=== PATIENT | male | born 2000 ===

== ENCOUNTER 2025-03-25 08:49 | Outpatient (AMB) | payer OTHER, SELFPAY ==
--- NOTE | 2025-03-25 09:03 | MHC.PC.OV ---
Vital Signs 03/25/25 09:26 Height 5 ft 7 in Weight 125 lb 8 oz BMI 19.7 BP 96/60 Blood Pressure Location Lt brachial Position Sitting Respiration 16 Pulse 89 Pulse Source Pulse Oximeter Temp 98.3 F Temp Source Oral Pulse Oximetry (%) 96 Oxygen Delivery Method Room Air Intake Visit Reasons: [employer]-PE Intake Note: patient here for new patient visit Drying Room Operator Required: No Allergies No Known Allergies Allergy (Verified 03/25/25 09:25) Medication List - Last Reconciled 03/25/25 by Alyssa Zurita CNP albuterol sulfate 90 mcg/actuation (Ventolin HFA) 2 puffs inhalation Q4-6H PRN budesonide-formoterol 80-4.5 mcg/actuation 2 puffs inhalation BID cyclobenzaprine 5 mg PO BID ipratropium-albuterol 0.5 mg-3 mg(2.5 mg base)/3 mL 3 mL inhalation Q4-6H PRN naproxen 500 mg PO BID PRN Tobacco use date assessed: 03/25/25 Dental Screening Dental Screen Date: 03/25/25 Did you have a dental visit in the last 12 months?: No Did you have a dental problem in the last 6 months where you did not have access to dental care?: No Was dental information given to patient?: Yes HPI HPI Comments History of Present Illness Details 24-year-old male presents to establish care. Prior PCP? - [facility] Last office visit/CPE/labs - 4 years ago Acute issue(s) - Reports chronic persistent right hip pain and tightness which he attributes to sciatic nerve pain. He describes the pain as throbbing, pinching, pressure with prolonged sitting or standing. He also reports intermittent tingling and numbness to the right hip. The tightness is persistent. He has had xray which was negative. No fall, injury, or trauma. He takes Ibuprofen as needed and smoke cannabis to manage his pain. He had physical therapy few years ago without improvement or resolution of his symptoms. - Reports history of anxiety and depression. He notes that he was on psychotropic medication for 3 years but took himself off medications 6 years ago. He stop taking the medications because I did not feel like myself. He notes that he has not felt depressed in a while and his anxiety have been well controlled. Past Medical History - Asthma, sinusitis, sciatic nerve pain right hip, anxiety, depression Surgical History - None Family History - Mom: JHONNIE Social History - Nonsmoker. History of vaping. Drinks 2 shots once or twice monthly. Smokes an 8th of cannabis daily - Has been making unhealthy dietary choices. He does not exercise due to right hip pain. Reports poor sleep due to right hip pain - He notes that he sexually active, in a monogamous relationship, and has no concern for STD Health maintenance - Last eye exam was about 6 years ago. Referred to Ophthalmology for routine eye exam - Last dental visit was several years ago; encouraged to schedule an appointment with his dentist for routine dental care - Last tetanus vaccine unknown. Will review his pediatrics record once received - Has not been vaccinated for the flu this season; declines vaccination Specialists None [facility] Medical History (Updated 03/25/25 @ 12:28 by Alyssa Zurita CNP) Depression Anxiety Sciatic nerve pain Sinusitis Asthma Family History (Updated 03/25/25 @ 09:24 by Charline Schofield MA) Mother Substance abuse Social History Housing: House Patient Tobacco Use Status: Never used Tobacco e-Cigarette/Vaping Use: Former Use Second Hand Smoke Exposure: Yes Substance Use Type: Marijuana service: No Current occupational status: unemployed Current occupational exposures/hazards: No Cognitive needs: No Hearing needs: No Vision needs: No Questionnaire PHQ-9 Over the last 2 weeks, how often have you been bothered by any of the following problems? 1. Little interest or pleasure in doing things: several days 2. Feeling down, depressed, or hopeless: several days 3. Trouble falling or staying asleep, or sleeping too much: nearly every day 4. Feeling tired or having little energy: several days 5. Poor appetite or overeating: several days 6. Feeling bad about yourself - or that you are a failure or have let yourself or your family down: several days 7. Trouble concentrating on things, such as reading the newspaper or watching television: not at all 8. Moving or speaking so slowly that other people could have noticed. Or the opposite - being so fidgety or restless that you have been moving around a lot more than usual: not at all 9. Thoughts that you would be better off or of hurting yourself in some way: not at all Total score: 8 Depression Screening Interpretation: Positive Depression Screening Follow-up: Existing condition and Declines treatment Depression Screening Done: Yes 68927 - PHQ-9 Billing: Yes Source: Developed by Drs. Osman Milan, Rose Henson, Triston Mayorga and colleagues, with an educational george from [employer]. Thrive Questionnaire Date Thrive assessed: 03/25/25 I am a: Patient What is your living situation today?: I have a place to live, but I am worried about losing it in the future Within the past 12 months, did the food you bought not last and you didn't have the money to get more?: Sometimes True Within the past 12 months, did you worry whether your food would run out before you got money to buy more?: Never true Do you have trouble paying for medicines?: Yes Do you have trouble getting transportation to medical appointments?: Yes Do you have trouble paying your heating and electricity bill?: Yes Do you have trouble taking care of your child, family member or friend?: No Do you have trouble with day-to-day activities such as bathing, preparing meals, shopping, managing finances, etc.?: No Are you currently unemployed and looking for a job?: Yes Are you interested in more education?: Yes Please select the resources that you would like help with: Housing/Half-Way, Paying for medicine, Transportation, Utilities, Daily support and Job search/training Currently or been in a relationship where the following occur: I choose not to answer THRIVE Score: 4 AUDIT C Alcohol Use Questionnaire (AUDIT-C) 1. How often do you have a drink containing alcohol?: Monthly or less 2. How many drinks containing alcohol do you have on a typical day when you are drinking?: 1 or 2 3. How often do you have six or more drinks on one occasion?: Less than monthly Total Score: 2 Score Reviewed/Action Taken: Yes JOSUE-7 AMB Questionnaire JOSUE-7 Date JOSUE - 7 assessed: 03/25/25 Feeling nervous, anxious, or on edge: 1 = Several days Not being able to stop or control worryin = Several days Worrying too much about different things: 1 = Several days Trouble relaxin = Several days Being so restless that it is hard to sit still: 0 = Not at all Becoming easily annoyed or irritable: 1 = Several days Feeling afraid as if something awful might happen: 1 = Several days Total JOSUE-7 score (0-4 normal; 5-9 mild; 10-14 moderate; 15-21 severe): 6 Source: Developed by Drs. Osman Milan, Rose Henson, Triston Mayorga and colleagues, with an educational george from [employer]. JOSUE-7 Assessment Billing JOSUE-7 Assessment Tool: JOSUE-7 Assessment 06599 ACT Questionnaire In the past 4 weeks, how much of the time did your asthma keep you from getting as much done at work, school or at home?: All of the time During the past 4 weeks, how often have you had shortness of breath?: More than once a day During the past 4 weeks, how often did your asthma symptoms wake you up at night or earlier than usual in the morning?: Once or twice per week During the past 4 weeks, how often have you had to use your rescue inhaler or nebulizer medication?: More than 3 times per day How would you rate your asthma control during the past 4 weeks?: Poorly controlled ACT Interpretation: Positive Score: 9 Review of Systems Const Details: Denies chills, Denies fatigue, Denies fever(s), Denies headache(s) and Denies weakness HEENT Denies change in vision, Denies dizziness, Denies headache(s), Denies hearing loss, Denies nasal congestion, Denies sinus pain, Denies sinus pressure and Denies sore throat Card Denies chest pain, Denies lightheadedness, Denies dyspnea and Denies other (palpitations) Resp Denies cough, Denies dyspnea and Denies wheezing GI Denies abdominal pain, Denies melena, Denies hematochezia, Denies change in bowel habits, Denies dyspepsia and Denies nausea Denies hematuria and Denies dysuria Musc Reports as per HPI Skin/Breast Denies rash, Denies unusual bruising and Denies wounds Neuro Denies abnormal gait, Denies dizziness, Denies headache(s), Denies memory loss, Denies numbness, Denies Sensory deficit (Neuro), Denies tingling and Denies weakness Psych Reports anxiety, Denies depression and Denies memory loss Endo Denies cold intolerance, Denies fatigue, Denies heat intolerance, Denies polydipsia and Denies polyuria Malik/Lymph Denies easy bleeding and Denies easy bruising Aller/Immun Denies wheezing Physical exam (Primary Care) Vital Signs: Last Vital Signs Temp 98.3 F 03/25/25 09:26 Pulse 89 03/25/25 09:26 Resp 16 03/25/25 09:26 BP 96/60 03/25/25 09:26 Pulse Ox 96 03/25/25 09:26 Oxygen Delivery Method Room Air 03/25/25 09:26 BMI result Body Mass Index 19.7 Tobacco/Smoking Status: Tobacco use Status Tobacco use date assessed 03/25/25 03/25/25 09:04 Patient Tobacco Use Status Never used Tobacco 03/25/25 09:28 e-Cigarette/Vaping Use Former Use 03/25/25 09:28 PHQ-9: PHQ-9 Score PHQ-9: Total score 8 03/25/25 09:57 Depression Screening Interpretation: Positive Depression Screening Follow-up: Existing condition and Declines treatment Thrive Assessment: Date of Thrive Assessment Date Thrive assessed 03/25/25 03/25/25 09:04 Currently or been in a relationship where the following occur: I choose not to answer Const Other: General: no acute distress, well developed, alert and awake Nutritional Appearance: well nourished Orientation/consciousness: patient oriented x3 HENMT Head: Yes normocephalic and Yes atraumatic Ears: hearing grossly normal bilaterally and TM's normal bilaterally General nose exam: Normal external nose present and Normal nares present Mouth: Normal oral and palatal mucosa present and moist mucous membranes Teeth and gingiva: dentition normal Throat: Yes oropharynx normal Eyes Pupils: Equal, round and reactive pupils present and Pupil accommodation reflex normal EOM: EOMs intact bilaterally Neck Neck: Yes normal visual inspection, Yes no lymphadenopathy and Yes trachea midline Thyroid: Thyroid normal Carotids: no bruits Lymphatic: no lymphadenopathy noted Chest Chest palpation & inspection: normal inspection of the chest Resp Effort & Inspection: normal respiratory effort Auscultation: clear to auscultation bilaterally Cardio Rate: regular rate Rhythm: regular rhythm Heart sounds: S1 normal heart sound present, S2 normal heart sound present, no gallops, no murmurs and no rubs Bruits: no abdominal aortic bruits and no carotid bruits GI Palpation (GI): No Abdominal aortic bruit present, Soft to palpation, nontender, No hepatosplenomegaly present and No Rebound tenderness present Auscultation: normal bowel sounds General: Yes no CVA tenderness Back/Spine/Pelvis Back: no CVA tenderness Cervical Spine: cervical ROM normal and No Cervical spine tenderness Thoracic/Lumbar Spine: thoraco-lumbar ROM normal, No pain with thoraco-lumbar ROM, No thoracic spinal tenderness and No lumbar spinal tenderness Skin General: warm and dry. Normal skin color. Normal skin turgor Lesions: no lesions Rashes: no rashes Trauma: no lacerations or abrasions Wounds: no wounds Nails: normal Neuro General: patient oriented x3, gait normal and CN's II-XI intact bilaterally Cranial nerves: Yes Equal, round and reactive pupils present Cognition (Neuro): normal cognition Gait exam (Neuro): Normal gait present Motor exam (neuro): 5/5 motor strength present throughout Sensory Exam: No Sensory deficit (Neuro) Deep tendon reflexes (DTR's): Right patellar reflex intensity grade: 2+ and Left patellar reflex intensity grade: 2+ Extrem General: Yes normal to inspection, No edema and No calf tenderness Psych Appearance: grossly normal Affect: normal affect Attitude: cooperative Thought process: Normal thought process present Coding Level of Care Code New Pt Level 4 (46446) New Pt Prev Care 18-39yr(08457 Diagnoses Normal physical examination, routine Z00.00 Asthma J45.909 Right hip pain M25.551 Anxiety F41.9 Depression F32.A Eye exam, routine Z01.00 Poor nutrition E63.9 Laboratory tests ordered as part of a complete physical exam (CPE) Z00.00 Additional Codes Asthma Control Questionnaire - ACT Interpretation: Positive ([id number]) JOSUE-7 Assessment Billing - JOSUE-7 Assessment Tool: JOSUE-7 Assessment 85509 ([id number]) PHQ-9 - 56858 - PHQ-9 Billing: Yes ([id number]) Assessment & Plan Assessment & Plan (1) Normal physical examination, routine: Code(s): Z00.00 - Encounter for general adult medical examination without abnormal findings Category: Medical Plan: No significant functional limitation noted. Continue current treatment regimen. Advised to performed lab work and follow-up for a telehealth visit in 2-3 weeks. Return sooner with symptoms or concerns. Verbalized understanding and agreed with the plan. (2) Asthma: Code(s): J45.909 - Unspecified asthma, uncomplicated Category: Medical Plan: ACT score is 9, poorly control asthma. Instructed on appropriate use of long and short-acting inhalers. Continue current treatment regimen. Referred to pulmonology. Follow-up with symptoms or concerns. Verbalized understanding and agreed with the plan. (3) Right hip pain: Code(s): M25.551 - Pain in right hip Category: Medical Plan: Reports chronic persistent right hip pain and tightness which he attributes to sciatic nerve pain. He describes the pain as throbbing, pinching, pressure with prolonged sitting or standing. He also reports intermittent tingling and numbness to the right hip. The tightness is persistent. He does not exercise or sleep well due to the pain. He has had xray which was negative. No fall, injury, or trauma. He takes Ibuprofen as needed and smoke cannabis to manage his pain. He had physical therapy few years ago without improvement or resolution of his symptoms. Naproxen 500 mg twice daily as needed and cyclobenzaprine 5 mg twice daily as needed ordered; advised to take as prescribed. Take naproxen with food. Instructed on the risks, benefits, and potential adverse reactions of the medication. Warm/cool compresses, stretching, and massage encouraged. Instructed on sleep hygiene. X-ray of the right hip and pelvis ordered; will review results and make changes as needed. Follow-up with worsening or new symptoms. May referred to orthopedics. Verbalized understanding and agreed with the plan. (4) Anxiety: Code(s): F41.9 - Anxiety disorder, unspecified Category: Medical Plan: Reports history of anxiety and depression. He notes that he was on psychotropic medication for 3 years but took himself off medications 6 years ago. He stop taking the medications because I did not feel like myself. He notes that he has not felt depressed in a while and his anxiety have been well controlled. PHQ-9 and JOSUE-7 scores revealed mild depression and anxiety. Declines medication treatment at this time. Routine exercise encouraged. Follow-up with worsening or new symptoms. Verbalized understanding and agreed with the plan. (5) Depression: Code(s): F32.A - Depression, unspecified Category: Medical Plan: Plan as above. (6) Eye exam, routine: Code(s): Z01.00 - Encounter for examination of eyes and vision without abnormal findings Category: Medical Plan: His last eye exam was about 6 years ago. Referred to Ophthalmology for routine eye exam. (7) Poor nutrition: Code(s): E63.9 - Nutritional deficiency, unspecified Category: Medical Plan: He has been making unhealthy dietary choices. He does not exercise due to right hip pain. Healthy diet instructed and encouraged. Advised to follow treatment plan for right hip pain. Verbalized understanding and agreed with the plan. (8) Laboratory tests ordered as part of a complete physical exam (CPE): Code(s): Z00.00 - Encounter for general adult medical examination without abnormal findings Category: Medical Plan: Fasting labs ordered as part of a complete physical exam. Advised to fast for at least 10 hours before getting labs drawn. May drink water Verbalized understanding and agreed with treatment plan. Orders: Orders Complete Blood Count Auto Diff Today Z00.00 - Encounter for general adult medical examination without abnormal findings Comprehensive [place]. Panel Fast Today Z00.00 - Encounter for general adult medical examination without abnormal findings TSH reflex Free T4 Today Z00.00 - Encounter for general adult medical examination without abnormal findings UA CC w/rflx Micro + Cult Today Z00.00 - Encounter for general adult medical examination without abnormal findings Vitamin D 25-OH Total Today Z00.00 - Encounter for general adult medical examination without abnormal findings XR hip RT w PEL1V Today M25.551 - Pain in right hip Lipid Panel Today Z00.00 - Encounter for general adult medical examination without abnormal findings Microalbumin, Random (w Creat) Today Z00.00 - Encounter for general adult medical examination without abnormal findings Referrals Ophthalmology Referral Z01.00 - Encounter for examination of eyes and vision without abnormal findings Pulmonology Referral J45.909 - Unspecified asthma, uncomplicated Medications: New ipratropium-albuterol 0.5 mg-3 mg(2.5 mg base)/3 mL 3 mL inhalation Q4-6H PRN 180 mL 4RF shortness of breath or wheezing cyclobenzaprine 5 mg PO BID 30 tabs 1RF naproxen 500 mg PO BID PRN 60 tabs 1RF pain
--- OUTSIDE RECORDS SUMMARY | 2025-03-25 09:09 | XMS_ITS | Clinical Summary ---
Author Organization [facility] Address [address] [place] [phone] Phone Care Team Providers Care Burr Bench Operator Name Role Phone Unavailable Primary Care Provider Unavailabl e Allergies Active Allergy Reactions Criticality Noted Date Comments Environmental Medications calcium carbonate EX (TUMS SMOOTHIES) 750 MG chewable tabletIndication s:Dyspepsia Chew 2 tablets (1,500 mg total) 2 (two) times a day as needed for indigestion or heartburn. 90 tablet 9 Active Additional Information Patient not taking.Reported on 10/22/2019 cloNIDine 0.1 MG tabletIndication s:Anxiety,Disrup mango sleep-wake cycle TAKE 1 TABLET(0.1 MG) BY MOUTH EVERY NIGHT. MAY TAKE UP TO 2 TABLET AT NIGHT NEEDED 45 tablet 0 Active Additional Information Patient not taking.Reported on 03/18/2021 Nebulizer miscIndications: Moderate persistent asthma without complication 1 Units every 4 (four) hours as needed (difficulty breathing). 1 each 1 0 Active Additional Information Patient not taking.Reported on 05/05/2021 FLUoxetine 10 MG capsuleIndicatio ns:Anxiety TAKE 1 CAPSULE(10 MG) BY MOUTH EVERY MORNING 30 capsule 0 Active Additional Information Patient not taking.Reported on 03/18/2021 Spacer/Aero-Hold ing Chambers (AeroChamber Plus Ozzy-Vu) miscIndications: Moderate persistent asthma without complication as directed with MDI 1 each 0 Active Additional Information Patient not taking.Reported on 05/05/2021 fluticasone 50 MCG/ACT nasal sprayIndications :Allergic rhinitis, unspecified seasonality, unspecified trigger SHAKE LIQUID AND USE 2 SPRAYS IN EACH NOSTRIL DAILY 1 Units 3 0 Active Additional Information Patient not taking.Reported on 05/05/2021 fluticasone-salm eterol (Advair HFA) 115-21 MCG/ACT inhalerIndicatio ns:Moderate persistent asthma without complication Inhale 2 puffs every 12 (twelve) hours. Rinse mouth with water after use, do not swallow. 1 Units 5 1 Active cetirizine 10 MG tabletIndication s:Moderate persistent asthma without complication Take 1 tablet (10 mg total) by mouth once daily. 30 tablet 3 1 Active albuterol (2.5 MG/3ML) 0.083% nebulizer solutionIndicati ons:Allergic rhinitis, unspecified seasonality, unspecified trigger,Moderate persistent asthma without complication Take 3 mL (2.5 mg total) by nebulization every 4 (four) hours as needed for wheezing (Use as needed for wheezing and wean as tolerated) for up to 7 days. 180 mL 1 Active ProAir HFA 108 (90 Base) MCG/ACT inhalerIndicatio ns:Moderate persistent asthma without complication INHALE 2 PUFFS BY MOUTH EVERY 4 HOURS NEEDED FOR WHEEZING OR SHORTNESS OF BREATH 8.5 g 1 Active Active Problems Problem Noted Date Diagnosed Date Anxiety 01/08/2020 Assessment & Plan (03/18/2021 2:55 PM EDT): Hayden is not on any meds other than cannabis. He refuses to reconsider SSRIs, clonidine or hydroxyzine which he has been on the past. His source of anxiety, he states, is the relationship with his Dad- adoptive Dad. I told him therapy can help him overcome, either rebuilding a different relationship or moving on. He states he is moving on, has a new job starting soon, he wants to buy a car. Mom's strokes have hit Hayden hard. I reiterated multiple times that marijuana is not a good out, and he did acknowledge some people smoke to escape, but he doesn't seem to think this is the case with him. Encouraged him to make an appointment with Antionette, and also to vut back on the marijuana, but he is insisting on the edibles. Assessment & Plan (01/08/2020 5:50 PM EST): Dr. oCrey has been following Hayden and spoke with him during the visit about how they can reach Hayden's goals of taking his medicine and feeling better. Hayden agrees to try to take meds 5/7 days and will f/u with Dr. Corey in 2 weeks. Allergic rhinitis 10/08/2019 Assessment & Plan (03/18/2021 2:56 PM EDT): Flonase and cetirizine work. Needs cetirizine refill. Assessment & Plan (10/08/2019 1:11 PM EST): Serous effusions b/l, will restart cetirizine, Flonase. To f/u if he continues to experience ringing/popping in his ears. Chronic midline low back pain without sciatica 0 04/05/2019 Overview (07/08/2021): Ortho cleared and sent to PT as well; diagnosed with solitary sacroilitis; PT to start. Additionally, diagnosed with bilateral pes planus and sent for orthotics Assessment & Plan (03/18/2021 2:51 PM EDT): Hayden has trouble laying on the exmining table and getting back up. Sent to [facility]. Assessment & Plan (10/08/2019 1:07 PM EST): Appt this afternoon with [facility]. I asked Hayden to mention to them that he has had some issues with constipation and back pain with defecating which he will do. Assessment & Plan (04/05/2019 3:31 PM EDT): Will x-ray SI joints due to chronic nature. No ibuprofen, Tylenol only, heat. Will f/u with x-ray results once received. Acquired absence of kidney 01/09/2017 Assessment & Plan (10/05/2018 1:35 PM EST): Careful when playing sports, his friends guard him, he only does it unofficially ADHD (attention deficit hype ractivity disorder), combined type 01/09/2017 Assessment & Plan (10/05/2018 1:35 PM EST): Is in a special program at school, wants to do music, is doing OK Marijuana abuse, continuous 01/09/2017 Assessment & Plan (03/18/2021 2:50 PM EDT): Nabeel is of the persuasion that marijuana is better than any medication for him. He is trying to get into the edible marijuana use. He does not want to talk to any therapist other than Antion[facility], and even then, he states he has little time for this. He has a girlfriend who listens to him, and that suffices for him. Assessment & Plan (12/28/2019 4:05 PM EST): He was very up-front about his use. We discussed seeking treatment and support for this. He would like to discuss this further with Dr Corey. I urged him to make an appointment on the way out to see her soon, he no showed for the recent appt with her. Assessment & Plan (10/08/2019 1:10 PM EST): Encouraged to reduce usage, has stopped vaping. Assessment & Plan (10/05/2018 1:42 PM EST): Daily use, self medicates his anxiety, he states; does not want to see a therapist, does not want to stop using marijuana, I don't think he understands the risks, not clear on how to proceed as he is an adult. He however, will not be budged. Moderate persistent asthma without complication 01/09/2017 Overview (05/13/2020): 05/25 ED visit exacerbation and referral to pulm, still with mariajuana use Assessment & Plan (03/18/2021 2:47 PM EDT): Hayden smokes marijuana daily, and uses Advair daily, albuterol PRN. He did stop vaping. Looking into manufacturing marijuana edibles for himself. He did do better during Covid- less viral triggers. Needs to contact his pharmacy for vaccinations. Assessment & Plan (06/03/2020 8:13 PM EDT): Hayden does not appear in any distress at this time. He is able to speak in long paragraphs and has no increased resp effort. Will hold off on additional steroids at this time but will change him from Asmanex to Adviar to see if the salmeterol will give him some longer relief. We reviewed how to take medication. At this time I am not concerned for Covid. If he has any increased symptoms or not improving will need to come in for a visit so we can listen to lungs. Glad to hear he has cut down on smoking -he needs to continue to stop this as this is likely playing a large role in his symptoms. Assessment & Plan (01/08/2020 5:51 PM EST): Will add steroid taper. Had Hayden schedule an appt with Dr. Zuniga while we were in the room for 01/13 at 2 PM. Assessment & Plan (12/28/2019 4:06 PM EST): Has Albuterol. Urged him to abstain from vaping due to the health risks, the least of which is exacerbation of asthma symptoms. Assessment & Plan (10/08/2019 1:08 PM EST): Reiterated use of Asmanex twice daily for controller, albuterol q 4-6 hours prn for rescue. If he is using Asmanex as prescribed and continues to require daily albuterol, then we need to consider stepping up his controller therapy. Assessment & Plan (04/05/2019 3:31 PM EDT): Lungs clear on exam, I think his symptoms are more related to allergies. Continue daily Zyrtec, add nasal saline. Reviewed with Hayden that Asmanex is his maintenance and Ventolin is rescue. F/u with concerns. Assessment & Plan (12/04/2018 5:19 PM EST): Lung are not too tight, but given his history of asthma and poor compliance, will treat with 5 days of steroids, then f/u in office and restart his Asmanex. If he is not responding how he would expect with the steroid, or any worsening, to f/u sooner. Again, recommended not vaping or smoking marijuana. Assessment & Plan (10/05/2018 1:37 PM EST): He will not stop smoking marijuana unless having trouble breathing, which he did recently. Was prescribed with prednisone, missed many days and is finishing it now. Oppositional defiant disorder 01/09/2017 Assessment & Plan (10/08/2019 1:10 PM EST): Hayden had a good connection with this therapist at [facility] who left the organization. He expresses a desire to talk with someone and feels that he has an easier time speaking about his emotions with female providers. Introduced Hayden to Dominique Ramos here in our office and he scheduled an appointment. Assessment & Plan (04/05/2019 3:19 PM EDT): Recent stress with mom's accident, now back at home. Hayden is doing a great job using coping mechanisms to keep from flying off the handle. He recognizes that it would be good to return to therapy and is meeting with a friend's mom who is a therapist to talk. I also gave him the phone number for [facility] and he says he will call to get on the waiting list for therapy. Assessment & Plan (10/05/2018 1:37 PM EST): Doing much better, he states, because of the marijuana Resolved Problems Problem Noted Date Diagnosed Date Resolved Date Nicotine vapor product user 12/28/2019 03/18/2021 Assessment & Plan (12/28/2019 4:09 PM EST): He showed me a bottle of peach flavored Nicotine vape juice he uses. Offered Nicotine patch rx to help him quit, he declined this, stating it is easy for him to abstain. Discussed the health benefits of abstaining, encouraged the good self care decision to abstain. Gave printed material from the [facility] with teen/young adult supports (texting, [employer], etc). 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 bottle he currently holds. Immunizations Immunization Administration Dates Next Due DTaP 09/19/2005, 2,03/19/2001,01/17,2000 H1N1 10/20/2009,09/03/2009 HPV, Quadrivalent 11/22/2012,01/09/2012,11/07/19 12 Hep A, ped/adol 08/14/2019 Hep B, ped/adol 06/18/2001,2000,2000 Hib (PRP-T) 12/26/2001, 1,01/17/2001,11/28 IPV 09/19/2005, 1,01/17/2001,11/28 Influenza 10/04/2007, 6,08/23/2005,08/02 Influenza, injectable, quadrivalent 11/06,12/10/2014,11/21/2013,11/22,11/07/2011,07/24/2010,10/20/2009 ,09/06/2008 Influenza, injectable, quadr ivalent, preservative free 08/14/2019,01/09/2017 MMR 09/20/2004,09/18/2001 Meningococcal Conj (Menactra) MCV4P 01/09/2017,0 11/07/2011 Pneumococcal Conjugate 12/26/2001,03/19/2001, Tdap 11/07/2011 Varicella 10/04/2007,09/18/2001 Family History * Patient is adopted Medical History Relation Name Comments Depression Mother Heart disease (Premature) Mother Substance abuse Mother ADD / ADHD Sister 1 ADD / ADHD Sister 2 Relation Name Status Comments Father Bio Dad is unkn own and per Hayden was 15 when he was conceived. Mom in her 20's. Mom's partner, who sifgned the certificate, in senior care of unknown cause Maternal Grandfather Other unknown Maternal Grandmother Other unknown Mother Alive bio Mom with mi tral valve stenosis Paternal Grandfather Other unknown Paternal Grandmother Other unknown Sister 1 Alive Sister 2 Alive Social History Tobacco Use Types Packs/Day Years Used Date Smoking Tobacco: Light Smoker Tobacco Cessation:Ready to Q uit: No; Counseling Given: Yes Alcohol Use Standard Drinks/Week Comments Yes 0 (1 standard drink = 0.6 oz pur e alcohol) Hunger/Food Answer Date Recorded In the last 12 months, did y ou or your family ever eat less than you felt you should because there wasn't enough money for food? No 03/14/2021 Stable Housing Answer Date Recorded Are you worried that in the next 2 months you may not have stable housing? No 03/14/2021 Transportation Concerns Answer Date Rec orded In the last 12 months, have you or your family ever had to go without healthcare because you didn't have a way to get there? No 03/14/2021 Hazards in Home Answer Date Recorded Think about the place you li ve. Do you have problems with any of the following? Pests (mice or roaches), mold, no/not working smoke detectors, water leaks, no window guards. No 2020 Financing Utilities Answer Date Recorde d In the last 12 months, has t he electric, gas, oil, or water company threatened to shut off your services in your home? No 03/14/2021 Safety at Home Answer Date Recorded Are you or your family worried about feeling saf e in your home? No 03/14/2021 Outside Support Answer Date Recorded Do you feel that you need mo re support from other people or programs to help you care for yourself or your family? No 03/14/2021 Understanding Health Concerns Answer Da te Recorded Do you need help understandi ng your or your child's healthcare needs (diagnosis, medications, plan, etc.)? No 03/14/2021 Financing Health Concerns Answer Date R ecorded In the last 12 months, was t here a time when your child needed to see a doctor or get medications or supplies but could not because of cost? No 03/14/2021 Missing School or Work Answer Date Jefferson rded Did you or your child miss s chool or work because of a health problem that could have been avoided? No 03/14/2021 Sex and Gender Information Value Date Recorded Sex Assigned at Male 10/08/2019 10:49 AM EST Legal Sex Male 6:09 PM EDT Gender Identity Male 10/08/2019 10:49 AM EST Sexual Orientation Straight 10/08/2019 10 :49 AM EST Last Filed Vital Signs Vital Sign Reading Time Taken Comments Blood Pressure 118/68 05/05/2021 11:15 AM EDT Pulse 70 01/01/2020 2:05 PM EST Temperature 37 ??C (98.6 ??F) 01/08/2020 1:55 PM EST Respiratory Rate - - Oxygen Saturation 100% 01/01/2020 2:05 PM EST Inhaled Oxygen Concentration - - Weight 58.7 kg (129 lb 6.4 oz) 05/05/2021 11:15 AM EDT Height 169.5 cm (5' 6.75 ) 03/18/2021 2:01 PM ED T Body Mass Index 20.42 03/18/2021 2:01 PM EDT Plan of Treatment Health Maintenance Due Date Last Done Comments Hepatitis A Vaccines (2 of 2 - 2-dose series) 02/13/2020 08/14/2019 DTaP,Tdap,and Td Vaccines (7 - Td or Tdap) 11/07/2021 11/07/2011, 09/19/2005, 12/26/2001, Additional history exists Influenza Vaccines (#1) 2024 08/14/20, 01/09/2017, 11/24/2015, Additional history exists COVID-19 Vaccine ( season) 2024 Hepatitis B Vaccines Completed 06/18/2001, 2000, 2000 HIB Vaccines Completed 12/26/2001, 03/06, 01/17/2001, Additional history exists Pneumococcal Vaccine Completed 12/26/2001, 03/19/2001, 01/17/2001 MMR Vaccines Completed 09/20/2004, 09/18/2001 IPV Vaccines Completed 09/19/2005, 06/06, 01/17/2001, Additional history exists Varicella Vaccines Completed 10/04/2007, 09/18/2001 HPV Vaccines Completed 11/22/2012, 03/2012, 11/07/2011 Meningococcal Vaccine Completed 01/09/2017, 01/02/2 012 Men B Vaccine Aged Out No longer elig ajithle based on patient's age to complete this topic Insurance [facility] NON PCC
--- OUTSIDE RECORDS SUMMARY | 2025-03-25 09:09 | XMS_ITS | Encounter Summary ---
Author Organization [facility] Address [address] [place] [phone] Phone Care Team Providers Care Appliance Service Technician Name Role Phone Felicitas Mendosa NP Primary Care Provider [phone] Encounter Details Date Type Department Care Team (Late st Contact Info) Description 03/25/2018 Conversion [facility]counter [facility] [address] [place] [id number] Social History Tobacco Use Types Packs/Day Years Used Date Smoking Tobacco: Never Assessed Sex and Gender Information Value Date Recorded Sex Assigned at Male 10/08/2019 10:49 AM EST Legal Sex Male 6:09 PM EDT Gender Identity Male 10/08/2019 10:49 AM EST Sexual Orientation Straight 10/08/2019 10 :49 AM EST documented as of this encounter Plan of Treatment Not on file documented as of this encounter Visit Diagnoses Not on filedocumented in this encounter Care Teams Appliance Service Technician Relationship Specialty Start Date End Date Felicitas Mendosa NP [address] [place] [address] PCP - General Pediatrics 09/07/20 12/17/24 documented as of this encounter
--- OUTSIDE RECORDS SUMMARY | 2025-03-25 09:09 | XMS_ITS | Encounter Summary ---
Author Organization [facility] Address [address] [place] [address] Phone Care Team Providers Care Video Production Coordinator Name Role Phone Felicitas Mendosa NP Primary Care Provider [phone] Encounter Details Date Type Department Care Team (Late st Contact Info) Description 11/25/2009 Documentation [facility] [address] [place] [address] Family Medicine, Physician [address] [place] [address] Social History Tobacco Use Types Packs/Day Years [...] on filedocumented in this encounter Care Teams Video Production Coordinator Relationship Specialty Start Date End Date Felicitas Mendosa NP [address] [place] [address] PCP - General Pediatrics 09/07/20 12/17/24 documented as of this encounter
--- OUTSIDE RECORDS SUMMARY | 2025-03-25 09:09 | XMS_ITS | Encounter Summary ---
Author Organization [facility] Address [address] [place] [address] Phone Care Team Providers Care System Configuration Specialist Name Role Phone Deondre Felicitas NP Primary Care Provider [phone] Reason for Visit * Reason Comments Med Refill Encounter Details Date Type Department Care Team (Late st Contact Info) Description 04/09/2021 [facility] [address] [address] Osman Guy MD [address] [place] [phone] Moderate persistent asthma without complication Social History Tobacco Use Types Packs/Day Years Used Date Smoking Tobacco: Light Smoker Alcohol Use Standard Drinks/Week Comments Yes 0 [...] documented as of this encounter Visit Diagnoses Diagnosis Moderate persistent asthma without complication documented in this encounter Care Teams System Configuration Specialist Relationship Specialty Start Date End Date Felicitas Mendosa NP [address] [place] [address] PCP - General Pediatrics 09/07/20 12/17/24 documented as of this encounter
--- OUTSIDE RECORDS SUMMARY | 2025-03-25 09:09 | XMS_ITS | Encounter Summary ---
Author Organization [facility] Address [address] [place] [address] Phone Care Team Providers Care Rolled Ham Lacer Name Role Phone Felicitas Mendosa NP Primary Care Provider [phone] Reason for Visit * Reason Onset Date Comments Med Refill 11/11/2020 Encounter Details Date Type Department Care Team (Late st Contact Info) Description 11/11/2020 [facility]ill [facility] [address] [place] [address] Felicitas Mendosa NP [address] [place], [place] [id number] Allergic rhinitis, unspecified seasonality, unspecified trigger; Moderate persistent asthma without complication Social History Tobacco Use Types Packs/Day Years Used Date Smoking Tobacco: Light Smoker Alcohol Use Standard Drinks/Week Comments Yes 0 (1 standard drink = 0.6 oz pur e alcohol) Hunger/Food Answer Date Recorded No 11/13/2020 Stable Housing Answer Date Recorded No 11/13/2020 Transportation Concerns Answer Date Rec orded No 11/13/2020 Hazards in Home Answer Date Recorded No 11/13/2020 Financing Utilities Answer Date Recorde d No 11/13/2020 Safety at Home Answer Date Recorded No 11/13/2020 Outside Support Answer Date Recorded No 11/13/2020 Understanding Health Concerns Answer Da te Recorded Yes 11/13/2020 Financing Health Concerns Answer Date R ecorded No 11/13/2020 Missing School or Work Answer Date [place] rded No 11/13/2020 Sex and Gender Information Value Date Recorded Sex Assigned at Male 10/08/2019 10:49 AM EST Legal Sex Male 6:09 PM EDT Gender Identity Male 10/08/2019 10:49 AM EST Sexual Orientation Straight 10/08/2019 10 :49 AM EST documented as of this encounter Miscellaneous Notes * Telephone Encounter - Felicitas Mendosa NP - 11/11/2020 8:43 AM EST Rx reviewed, approved, and sent to pharmacy. * Telephone Encounter - Luz Whitlock MA - 11/11/2020 8:20 AM EST Refill request for Albuterol Last [facility] was 10/08/19 Last refill 09/07/20 Please review Due for W[facility] but will be aging out documented in this encounter Plan of Treatment Not on file documented as of this encounter Visit Diagnoses Diagnosis Allergic rhinitis, unspecified seasonality, unspecified trigger Moderate persistent asthma without complication documented in this encounter Care Teams Rolled Ham Lacer Relationship Specialty Start Date End Date Felicitas Mendosa NP [address] [place] [address] PCP - General Pediatrics 09/07/20 12/17/24 documented as of this encounter
--- OUTSIDE RECORDS SUMMARY | 2025-03-25 09:09 | XMS_ITS | Encounter Summary ---
Author Organization [facility] Address [address] [place] [address] Phone Care Team Providers Care Front Office Help Name Role Phone Deondre Felicitas NP Primary Care Provider [phone] Reason for Visit * Reason Onset Date Comments Med Refill 08/12/2021 Encounter Details Date Type Department Care Team (Late st Contact Info) Description 08/12/2021 [facility] [address] [address] Osman Guy MD [address] [place] [address] Allergic rhinitis, unspecified seasonality, unspecified trigger; Moderate [...] Telephone Encounter - Felicitas Mendosa NP - 08/12/2021 1:07 PM EDT Rx reviewed, approved, and sent to pharmacy. * Telephone Encounter - Emma Chua LPN - 08/12/2021 1:01 PM EDT Albuterol neb solution 1 vial every 4 hrs PRN; cough Last refill 03/22/21 Last [facility] 03/18/21 documented in this encounter Plan of Treatment Not on file documented as of this encounter Visit Diagnoses Diagnosis Allergic rhinitis, unspecified seasonality, unspecified trigger Moderate persistent asthma without complication documented in this encounter Care Teams Front Office Help Relationship Specialty Start Date End Date Felicitas Mnedosa NP [address] [place] [address] PCP - General Pediatrics 09/07/20 12/17/24 documented as of this encounter
--- OUTSIDE RECORDS SUMMARY | 2025-03-25 09:09 | XMS_ITS | Encounter Summary ---
Author Organization [facility] Address [address] [place] [address] Phone Care Team Providers Care Pleater Hand Name Role Phone Felicitas Mendosa NP Primary Care Provider [phone] Reason for Visit * Reason Comments Med Refill Encounter Details Date Type Department Care Team (Late st Contact Info) Description 09/26/2021 [facility]ill [facility] [address] [place] [address] Felicitas Mendosa NP [address] [place] [address] Moderate persistent asthma without complication Social History [...] encounter Miscellaneous Notes * Telephone Encounter - Osman Guy MD - 09/26/2021 9:59 PM EST already sent * Telephone Encounter - Luz Whitlock MA - 09/26/2021 8:20 PM EST Refill request for ProAir Last [facility] 03/18/21 Refilled 09/23/21 Refuse? Please see 09/23/21 encounter documented in this encounter Plan of Treatment Not on file documented as of this encounter Visit Diagnoses Diagnosis Moderate persistent asthma without complication documented in this encounter Care Teams Pleater Hand Relationship Specialty Start Date End Date Deondre, AMBROCIO Polk [address] [place] [address] PCP - General Pediatrics 09/07/20 12/17/24 documented as of this encounter
--- OUTSIDE RECORDS SUMMARY | 2025-03-25 09:09 | XMS_ITS | Encounter Summary ---
Author Organization [facility] Address [address] [place] [address] Phone Care Team Providers Care Full Service Vending Driver Name Role Phone Felicitas Mendosa NP Primary Care Provider [phone] Reason for Visit * Reason Onset Date Comments Med Refill 09/07/2020 Encounter Details Date Type Department Care Team (Late st Contact Info) Description 09/07/2020 [facility] [facility] [address] [place] [address] Felicitas Mendosa NP [address] [place] [address] [place] [address] Social History Tobacco Use Types Packs/Day Years Used Date Smoking Tobacco: Light Smoker Alcohol Use Standard Drinks/Week Comments Yes 0 (1 standard drink = 0.6 oz pur e alcohol) Hunger/Food Answer Date Recorded No 08/01/2020 Stable Housing Answer Date Recorded No 08/01/2020 Transportation Concerns Answer Date Rec orded No 08/01/2020 Hazards in Home Answer Date Recorded No 10/08/2019 Financing Utilities Answer Date Recorde d No 10/08/2019 Safety at Home Answer Date Recorded No 10/08/2019 Outside Support Answer Date Recorded No 10/08/2019 Understanding Health Concerns Answer Da te Recorded Yes 10/08/2019 Financing Health Concerns Answer Date R ecorded No 10/08/2019 Missing School or Work Answer Date [place] rded No 10/08/2019 Sex and Gender Information Value Date Recorded Sex Assigned at Male 10/08/2019 10:49 AM EST Legal Sex Male 6:09 PM EDT Gender Identity Male 10/08/2019 10:49 AM EST Sexual Orientation Straight 10/08/2019 10 :49 AM EST documented as of this encounter Plan of Treatment Not on file documented as of this encounter Visit Diagnoses Not on filedocumented in this encounter Care Teams Full Service Vending Driver Relationship Specialty Start Date End Date Felicitas Mendosa NP [address] [place] [address] PCP - General Pediatrics 09/07/20 12/17/24 documented as of this encounter
--- OUTSIDE RECORDS SUMMARY | 2025-03-25 09:09 | XMS_ITS | Encounter Summary ---
Author Organization [facility] Address [address] [place] [address] Phone Care Team Providers Care Manager Legal Name Role Phone Felicitas Mendosa NP Primary Care Provider [phone] Reason for Visit * Reason Onset Date Comments Med Refill 08/12/2021 Encounter Details Date Type Department Care Team (Late st Contact Info) Description 08/12/2021 [facility]ill [facility] [address] [place] [address] Felicitas Mendosa NP [address] [place] [address] Moderate persistent asthma without complication Social History [...] Encounter - Emma Chua LPN - 08/12/2021 12:55 PM EDT Cetirizine 10 Advair 2 puffs BID [facility] 03/18/21 documented in this encounter Plan of Treatment Not on file documented as of this encounter Visit Diagnoses Diagnosis Moderate persistent asthma without complication documented in this encounter Care Teams Manager Legal Relationship Specialty Start Date End Date Felicitas Mendosa NP 7 [place] [address] PCP - General Pediatrics 09/07/20 12/17/24 documented as of this encounter
--- OUTSIDE RECORDS SUMMARY | 2025-03-25 09:09 | XMS_ITS | Encounter Summary ---
Author Organization [facility] Address [address] [place] [address] Phone Care Team Providers Care Property Appraiser Name Role Phone Felicitas Mendosa NP Primary Care Provider [phone] Reason for Visit * Reason Comments Med Refill Encounter Details Date Type Department Care Team (Late st Contact Info) Description 10/22/2021 [facility]ill [facility] [address] [place] [address] Karime Christianson NP Moderate persistent asthma without complication Social History [...] complication documented in this encounter Care Teams Property Appraiser Relationship Specialty Start Date End Date Felicitas Mendosa NP 7 [place] [address] PCP - General Pediatrics 09/07/20 12/17/24 documented as of this encounter
[2025-03-25 09:26] VITALS: BP 96/60; PULSE 89; RESP 16; TEMP 36.8; O2SAT 96; BMI 19.7
== END 2025-03-25 09:57 | disposition home or self-care (01) ==
LOC: HO.HMCFM 08:50
PROVIDERS: PCP Nurse Practitioner Family; Visit Provider Nurse Practitioner Family
DX: Z00.00 Encounter for general adult medical examination without abnormal findings (principal); J45.909 Unspecified asthma, uncomplicated; M25.551 Pain in right hip; F41.9 Anxiety disorder, unspecified; F32.A Depression, unspecified; E63.9 Nutritional deficiency, unspecified

== ENCOUNTER → 2025-03-25 08:49 | Outpatient (BNVA) | payer OTHER, SELFPAY | PROVIDERS: PCP Nurse Practitioner Family; Visit Provider Nurse Practitioner Family | DX: Z00.00 Encounter for general adult medical examination without abnormal findings (principal); J45.909 Unspecified asthma, uncomplicated; M25.551 Pain in right hip; F41.9 Anxiety disorder, unspecified; F32.A Depression, unspecified; E63.9 Nutritional deficiency, unspecified | CPT/HCPCS: 96127; 96160; 99202; 99385 ==

== ENCOUNTER 2025-03-27 09:59 | Outpatient (REF) | payer OTHER, SELFPAY ==
--- NOTE | ~2025-03-27 | XR_ITS ---
EXAMINATION: XR HIP 1 VIEW RIGHT WITH PELVIS HISTORY: M25.551 - Pain in right hip COMPARISON: There are no prior studies for comparison. FINDINGS: A single AP view of the pelvis and two views of the right hip are submitted. Osseous mineralization is normal. There is no fracture or dislocation. There is mild superior joint space narrowing of both hips. The soft tissues are unremarkable. 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 Electronically signed by: Osman Neumann MD 03/27/2025 01:14 PM EDT
--- OUTSIDE RECORDS SUMMARY | 2025-03-27 10:25 | XMS_ITS | Encounter Summary ---
Author Organization [facility] Address [address] [place] [address] Phone Care Team Providers Care Application Support Manager Name Role Phone Deondre Felicitas NP Primary Care Provider [phone] Reason for Visit * Reason Comments Med Refill Encounter Details Date Type Department Care Team (Late st Contact Info) Description 04/09/2021 [facility] [address] [address] Osman Guy MD [address] [place] [address] Moderate persistent asthma without complication Social History [...] complication documented in this encounter Care Teams Application Support Manager Relationship Specialty Start Date End Date Felicitas Mendosa NP 7 [place] [address] PCP - General Pediatrics 09/07/20 12/17/24 documented as of this encounter
--- OUTSIDE RECORDS SUMMARY | 2025-03-27 10:25 | XMS_ITS | Encounter Summary ---
Author Organization [facility] Address [address] [place] [address] Phone Care Team Providers Care Windows Admin Name Role Phone Felicitas Mendosa NP Primary Care Provider [phone] Reason for Visit * Reason Comments Med Refill Encounter Details Date Type Department Care Team (Late st Contact Info) Description 09/26/2021 [facility]ill [facility] [address] [place] [address] Felicitas Mendosa NP 7 [place] [address] Moderate persistent asthma without complication Social History [...] PM EST Refill request for ProAir Last [facility] 03/18/21 Refilled 09/23/21 Refuse? Please see 09/23/21 encounter documented in this encounter Plan of Treatment Not on file documented as of this encounter Visit Diagnoses Diagnosis Moderate persistent asthma without complication documented in this encounter Care Teams Windows Admin Relationship Specialty Start Date End Date Deondre, AMBROCIO Polk [address] [place] [address] PCP - General Pediatrics 09/07/20 12/17/24 documented as of this encounter
--- OUTSIDE RECORDS SUMMARY | 2025-03-27 10:25 | XMS_ITS | Encounter Summary ---
Author Organization [facility] Address [address] [place] [address] Phone Care Team Providers Care Surtass Analyst Name Role Phone Felicitas Mendosa NP Primary Care Provider [phone] Reason for Visit * Reason Onset Date Comments Med Refill 08/12/2021 Encounter Details Date Type Department Care Team (Late st Contact Info) Description 08/12/2021 [facility]ill [facility] [address] [place] [address] Felicitas Mendosa NP 7 [place] [address] Moderate persistent asthma without complication Social History [...] EDT Cetirizine 10 Advair 2 puffs BID [facility] 03/18/21 documented in this encounter Plan of Treatment Not on file documented as of this encounter Visit Diagnoses Diagnosis Moderate persistent asthma without complication documented in this encounter Care Teams Surtass Analyst Relationship Specialty Start Date End Date Felicitas Mendosa NP 7 [place] [address] PCP - General Pediatrics 09/07/20 12/17/24 documented as of this encounter
--- OUTSIDE RECORDS SUMMARY | 2025-03-27 10:25 | XMS_ITS | Encounter Summary ---
Author Organization [facility] Address [address] [place] [address] Phone Care Team Providers Care Stopping Builder Name Role Phone Felicitas Mendosa NP Primary Care Provider [phone] Encounter Details Date Type Department Care Team (Late st Contact Info) Description 03/25/2018 Conversion Encounter [facility] [address] [place] [address] Social History Tobacco Use Types Packs/Day Years [...] on filedocumented in this encounter Care Teams Stopping Builder Relationship Specialty Start Date End Date Felicitas Mendosa NP [address] [place] [address] PCP - General Pediatrics 09/07/20 12/17/24 documented as of this encounter
--- OUTSIDE RECORDS SUMMARY | 2025-03-27 10:25 | XMS_ITS | Encounter Summary ---
Author Organization [facility] Address [address] [place] [address] Phone Care Team Providers Care Extractor Operator Helper Name Role Phone Deondre Felicitas NP Primary Care Provider [phone] Reason for Visit * Reason Onset Date Comments Med Refill 08/12/2021 Encounter Details Date Type Department Care Team (Late st Contact Info) Description 08/12/2021 [facility] [address] [address] Osman Guy MD [address] [place] [address] Allergic rhinitis, unspecified seasonality, unspecified trigger; Moderate [...] complication documented in this encounter Care Teams Extractor Operator Helper Relationship Specialty Start Date End Date Felicitas Mendosa NP [address] [place] [address] PCP - General Pediatrics 09/07/20 12/17/24 documented as of this encounter
--- OUTSIDE RECORDS SUMMARY | 2025-03-27 10:25 | XMS_ITS | Encounter Summary ---
Author Organization [facility] Address [address] [place] [address] Phone Care Team Providers Care Licensed Club Manager Name Role Phone Felicitas Mendosa NP Primary Care Provider [phone] Reason for Visit * Reason Onset Date Comments Med Refill 09/07/2020 Encounter Details Date Type Department Care Team (Late st Contact Info) Description 09/07/2020 [facility]ill [facility] [place] [address] [place] [address] Felicitas Mendosa NP [address] [place] [address] [place] [address] Social History Tobacco Use Types Packs/Day Years [...] on filedocumented in this encounter Care Teams Licensed Club Manager Relationship Specialty Start Date End Date Felicitas Mendosa NP [address] [place] [address] PCP - General Pediatrics 09/07/20 12/17/24 documented as of this encounter
--- OUTSIDE RECORDS SUMMARY | 2025-03-27 10:25 | XMS_ITS | Encounter Summary ---
Author Organization [facility] Address [address] [place] [address] Phone Care Team Providers Care Rubber Compounder Formulator Name Role Phone Felicitas Mendosa NP Primary Care Provider [phone] Reason for Visit * Reason Comments Med Refill Encounter Details Date Type Department Care Team (Late st Contact Info) Description 10/22/2021 [facility]ill [facility] [address] [place] [address] Karime Christianson NP Moderate persistent asthma without [...] complication documented in this encounter Care Teams Rubber Compounder Formulator Relationship Specialty Start Date End Date Felicitas Mendosa NP 7 [place] [address] PCP - General Pediatrics 09/07/20 12/17/24 documented as of this encounter
--- OUTSIDE RECORDS SUMMARY | 2025-03-27 10:25 | XMS_ITS | Encounter Summary ---
Author Organization [facility] Address [address] [place] [address] Phone Care Team Providers Care Oil Derrick Operator Name Role Phone Felicitas Mendosa NP Primary Care Provider [phone] Encounter Details Date Type Department Care Team (Late st Contact Info) Description 11/25/2009 Documentation [facility] Family Medicine [address] [place] [address] Family Medicine, Physician [address] [place] [address] Social History Tobacco Use Types Packs/Day Years [...] on filedocumented in this encounter Care Teams Oil Derrick Operator Relationship Specialty Start Date End Date Felicitas Mendosa NP [address] [place] [address] PCP - General Pediatrics 09/07/20 12/17/24 documented as of this encounter
--- OUTSIDE RECORDS SUMMARY | 2025-03-27 10:25 | XMS_ITS | Encounter Summary ---
Author Organization [facility] Address [address] [place] [address] Phone Care Team Providers Care Library Circulation Clerk Name Role Phone Felicitas Mendosa NP Primary Care Provider [phone] Reason for Visit * Reason Onset Date Comments Med Refill 11/11/2020 Encounter Details Date Type Department Care Team (Late st Contact Info) Description 11/11/2020 [facility]ill [facility] [address] [place] [address] Felicitas Mendosa NP 7 [place], [place] [id number] Allergic rhinitis, unspecified seasonality, unspecified trigger; Moderate [...] complication documented in this encounter Care Teams Library Circulation Clerk Relationship Specialty Start Date End Date Felicitas Mendosa NP [address] [place] [address] PCP - General Pediatrics 09/07/20 12/17/24 documented as of this encounter
--- OUTSIDE RECORDS SUMMARY | 2025-03-27 10:25 | XMS_ITS | Clinical Summary ---
Author Organization [facility] Address [address] [place] [address] Phone Care Team Providers Care Delivery Specialist Name Role Phone Unavailable Primary Care Provider [...] & Plan (01/08/2020 5:50 PM EST): Dr. Corey has been following [place] and spoke with [...] a good connection with this therapist at [facility] who left the organization. He expresses [...] also gave him the phone number for [facility] and he says he will call [...] to abstain. Gave printed material from the [facility] with teen/young adult supports (texting, [employer], etc). 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 [...] Mom's partner, who sifgned the certificate, in [place] of unknown cause Maternal Grandfather Other unknown [...] patient's age to complete this topic Insurance [facility] NON PCC
[2025-03-27 10:27] LABS: MANUAL DIFF FLAG NO
[2025-03-27 10:52] LABS: Basophils Absolute Auto 0.1 X10*3/uL (0.0-0.2); Basophils Percent Auto 1.4 % (0-2); Eosinophils Absolute Auto 0.4 X10*3/uL (0.0-0.4); Eosinophils Percent Auto 5.7 % (0-4); Hematocrit 44.2 % (42.0-52.0); Hemoglobin 15.5 g/dl (14.0-18.0); Imm Gran Abs Auto 0.01 X10*3/uL (0.00-0.03); Imm Gran Pct Auto 0.1 % (0.0-0.4); Lymphocytes Absolute Auto 2.2 X10*3/uL (1.2-4.9); Lymphocytes Percent Auto 31.2 % (20-40); Mean Corpuscular HGB Conc 35.1 g/dl (31.0-36.0); Mean Corpuscular Hemoglobin 31.6 pg (27.0-33.0); Mean Corpuscular Volume 90.2 fL (80.0-98.0); Mean Platelet Volume 10.1 fL (9.4-12.4); Monocytes Absolute Auto 0.4 X10*3/uL (0.1-1.2); Monocytes Percent Auto 5.2 % (2-11); Neutrophils Percent Auto 56.4 % (45-73); Platelet Count 169 X10*3/uL (160-400); White Blood Count 7.1 X10*3/uL (4.8-10.8)
[2025-03-27 11:02] LABS: Appearance Urine Clear; Color Urine Yellow; Glucose Urine UA Negative (Negative); Leukocyte Esterase Urine Negative (Negative); Nitrite Urine Negative (Negative); PH 6.5 (5.0-9.0); Specific Gravity - Urine <= 1.005 (1.005-1.025); Urine Blood Negative (Negative); Urine Ketones Negative (Negative); Urine Protein Negative (Neg-Trace)
[2025-03-27 11:47] LABS: Microalbumin Urine < 5.0 mg/L
[2025-03-27 12:09] LABS: Alanine Aminotransferase 14 U/L (0-40); Albumin Level 4.6 g/dL (3.5-5.0); Alkaline Phosphatase 47 U/L (39-117); Anion Gap 12 (12-20); Aspartate Amino Transferase 21 U/L (5-37); Bilirubin Total 0.4 mg/dL (0.0-1.0); Blood Urea Nitrogen 12 mg/dL (9-16); Calcium 9.3 mg/dL (8.4-10.2); Carbon Dioxide 27 mmol/L (22-29); Chloride 108 mmol/L (96-108); Cholesterol 119 mg/dL (<200); Estimated Glomerular Filt Rate > 60; Glucose Fasting 94 mg/dL (60-99); HDL Cholesterol 42 mg/dL (>40); LDL Cholesterol Calculated 68 mg/dL (<100); Potassium 3.7 mmol/L (3.3-5.1); Sodium 143 mmol/L (135-145); TSH reflex Free T4 3.15 uIU/mL (0.32-4.0); Triglycerides 46 mg/dL (<150); Vitamin D 25-OH Total 29.9 ng/mL (>30)
== END 2025-03-27 10:00 | disposition home or self-care (01) ==
LOC: HO.LAB 09:59
PROVIDERS: PCP Nurse Practitioner Family; Visit Provider Nurse Practitioner Family
DX: Z00.00 Encounter for general adult medical examination without abnormal findings (principal); M25.551 Pain in right hip
CPT/HCPCS: 36415; 73502; 80053; 80061; 81003; 82043; 82306; 82570; 84443; 85025

== ENCOUNTER → 2025-03-27 10:28 | Outpatient (BNV) | payer OTHER, SELFPAY | PROVIDERS: PCP Nurse Practitioner Family; Visit Provider Radiology Diagnostic Radiology | DX: M25.551 Pain in right hip (principal) | CPT/HCPCS: 73502 ==

== ENCOUNTER 2025-04-21 10:53 | Outpatient (AMB) | payer OTHER, SELFPAY ==
--- NOTE | 2025-04-21 10:59 | A.OFFPC_ITS ---
Vital Signs 04/21/25 11:03 Height 5 ft 7 in Weight 125 lb BMI 19.6 BP 98/55 L Blood Pressure Location Rt brachial Position Sitting Respiration 16 Pulse 81 Pulse Source Pulse Oximeter Temp 98.3 F Temp Source Oral Pulse Oximetry (%) 97 Oxygen Delivery Method Room Air Intake Visit Reasons: 2/3 weeks bloodwork/xray results Intake Note: patient here for 2-3 weeks follow up on bloodwork and xray results Microelectronics Assembler Required: No Allergies No Known Allergies Allergy (Verified 04/21/25 11:28) Medication List - Last Reconciled 04/21/25 by Alyssa Zurita CNP albuterol sulfate 90 mcg/actuation (Ventolin HFA) 2 puffs inhalation Q4-6H PRN budesonide-formoterol 80-4.5 mcg/actuation 2 puffs inhalation BID cyclobenzaprine 5 mg PO BID ipratropium-albuterol 0.5 mg-3 mg(2.5 mg base)/3 mL 3 mL inhalation Q4-6H PRN naproxen 500 mg PO BID PRN Tobacco use date assessed: 04/21/25 Dental Screening Dental Screen Date: 04/21/25 Did you have a dental visit in the last 12 months?: No Did you have a dental problem in the last 6 months where you did not have access to dental care?: No Was dental information given to patient?: No HPI HPI Comments History of Present Illness Details 24-year-old male presents for review of recent labs and imaging results. Reports right tight and throbbing pain which is consistent and chronic. He notes h/o right inguinal hernia with intermittent pain; present for the past 9 months. [facility] Medical History (Updated 04/21/25 @ 11:39 by Alyssa Zurita CNP) Depression Anxiety Sciatic nerve pain Sinusitis Asthma Family History (Updated 03/25/25 @ 09:24 by Charline Schofield MA) Mother Substance abuse Social History Housing: House Patient Tobacco Use Status: Never used Tobacco e-Cigarette/Vaping Use: Former Use Second Hand Smoke Exposure: Yes Substance Use Type: Marijuana service: No Current occupational status: unemployed Current occupational exposures/hazards: No Cognitive needs: No Hearing needs: No Vision needs: No Questionnaire Thrive Questionnaire Date Thrive assessed: 03/25/25 I am a: Patient What is your living situation today?: I have a place to live, but I am worried about losing it in the future Within the past 12 months, did the food you bought not last and you didn't have the money to get more?: Sometimes True Within the past 12 months, did you worry whether your food would run out before you got money to buy more?: Never true Do you have trouble paying for medicines?: Yes Do you have trouble getting transportation to medical appointments?: Yes Do you have trouble paying your heating and electricity bill?: Yes Do you have trouble taking care of your child, family member or friend?: No Do you have trouble with day-to-day activities such as bathing, preparing meals, shopping, managing finances, etc.?: No Are you currently unemployed and looking for a job?: Yes Are you interested in more education?: Yes Currently or been in a relationship where the following occur: I choose not to answer THRIVE Score: 4 JOSUE-7 AMB Questionnaire JOSUE-7 Date JOSUE - 7 assessed: 03/25/25 Source: Developed by Drs. Osman Milan, Rose Henson, Triston Mayorga and colleagues, with an educational george from [employer]. Review of Systems Const Details: Const Denies chills, Denies fatigue, Denies fever(s), Denies headache(s) and Denies weakness ENT Denies dizziness and Denies headache(s) Card Denies chest pain, Denies lightheadedness, Denies dyspnea and Denies other (Palpitations) Resp Denies cough, Denies dyspnea, Denies wheezing and Denies other ( shortness of breath) GI Reports right inguinal hernia, Denies abdominal pain, Denies melena, Denies hematochezia, Denies change in bowel habits, Denies dyspepsia and Denies nausea Denies hematuria and Denies dysuria Musc Reports as per HPI Skin/Breast Denies rash, Denies unusual bruising and Denies wounds Neuro Denies abnormal gait, Denies dizziness, Denies headache(s), Denies memory loss, Denies numbness, Denies Sensory deficit (Neuro), Denies tingling and Denies weakness Psych Denies anxiety, Denies depression, Denies memory loss Endo Denies cold intolerance, Denies fatigue, Denies heat intolerance, Denies polydipsia and Denies polyuria Aller/Immun Denies wheezing Physical exam (Primary Care) Vital Signs: Last Vital Signs Temp 98.3 F 04/21/25 11:03 Pulse 81 04/21/25 11:03 Resp 16 04/21/25 11:03 BP 98/55 L 04/21/25 11:03 Pulse Ox 97 04/21/25 11:03 Oxygen Delivery Method Room Air 04/21/25 11:03 BMI result Body Mass Index 19.6 Tobacco/Smoking Status: Tobacco use Status Tobacco use date assessed 04/21/25 04/21/25 11:06 Patient Tobacco Use Status Never used Tobacco 04/21/25 11:00 e-Cigarette/Vaping Use Former Use 04/21/25 11:00 Thrive Assessment: Date of Thrive Assessment Date Thrive assessed 03/25/25 04/21/25 11:00 Currently or been in a relationship where the following occur: I choose not to answer Const Other: General: no acute distress and well developed Nutritional Appearance: well nourished Orientation/consciousness: patient oriented x3 HENMT Head: Yes normocephalic and Yes atraumatic Eyes General: appearance normal, both eyes and all related structures Pupils: Equal, round and reactive pupils present EOM: EOMs intact bilaterally Resp Effort & Inspection: normal respiratory effort Auscultation: clear to auscultation bilaterally Cardio Rate: regular rate Rhythm: regular rhythm Heart sounds: S1 normal heart sound present, S2 normal heart sound present, no gallops, no murmurs and no rubs GI Palpation (GI): No Abdominal aortic bruit present, Soft to palpation, nontender, No hepatosplenomegaly present and No Rebound tenderness present. Painless moderate size lump to right groin Auscultation: normal bowel sounds General: Yes no CVA tenderness Back/Spine/Pelvis Back: no CVA tenderness Cervical Spine: cervical ROM normal and No Cervical spine tenderness Thoracic/Lumbar Spine: thoraco-lumbar ROM normal, No pain with thoraco-lumbar ROM, No thoracic spinal tenderness and No lumbar spinal tenderness Extrem General: Yes normal to inspection, No edema and No calf tenderness Skin General: warm and dry. Normal skin color. Normal skin turgor Neuro General: patient oriented x3, gait normal and no focal neuro deficit Cranial nerves: Yes Equal, round and reactive pupils present Cognition (Neuro): normal cognition Gait exam (Neuro): Normal gait present Sensory Exam: No Sensory deficit (Neuro) Psych Appearance: grossly normal Affect: normal affect Attitude: cooperative Thought process: Normal thought process present Coding Level of Care Code Est Pt Level 4 (42436) Diagnoses Vitamin D deficiency E55.9 Right hip pain M25.551 Right inguinal hernia K40.90 Assessment & Plan Assessment & Plan (1) Vitamin D deficiency: Code(s): E55.9 - Vitamin D deficiency, unspecified Category: Medical Plan: Recent vitamin-D level is slightly low, 29.9. Lab results otherwise unremarkable. Vitamin D3 1000 units daily ordered; advised to take as prescribed. Informed that the sun is a good source of vitamin-D. Will monitor vitamin-D level annually or if presents with related symptoms or concerns. Verbalized understanding and agreed with the plan. (2) Right hip pain: Code(s): M25.551 - Pain in right hip Category: Medical Plan: Reports right tight and throbbing pain which is consistent and chronic. 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 Continue current treatment regimen. Warm/cool compresses encouraged. Referred to [facility] orthopedics (3) Right inguinal hernia: Code(s): K40.90 - Unilateral inguinal hernia, without obstruction or gangrene, not specified as recurrent Category: Medical Plan: He notes h/o right inguinal hernia with intermittent pain; present for the past 9 months. Painless moderate size lump to right groin. May take Tylenol ibuprofen for pain or discomfort. Warm/cool compresses encouraged. Referred to [facility] general surgery. Orders: Referrals Orthopedics Referral K40.90 - Unilateral inguinal hernia, without obstruction or gangrene, not specified as recurrent General Surgery Referral K40.90 - Unilateral inguinal hernia, without obstruction or gangrene, not specified as recurrent Medications: New cholecalciferol (vitamin D3) 25 mcg PO DAILY 90 days 90 tabs 3RF
[2025-04-21 11:03] VITALS: BP 98/55; PULSE 81; RESP 16; TEMP 36.8; O2SAT 97; BMI 19.6
--- OUTSIDE RECORDS SUMMARY | 2025-04-21 12:24 | XMS_ITS | Encounter Summary ---
Author Organization [facility] Address [address] [place] [address] Phone Care Team Providers Care Medical Equipment Repairer Name Role Phone Felicitas Mendosa NP Primary Care Provider [phone] Encounter Details Date Type Department Care Team (Late st Contact Info) Description 11/25/2009 Documentation [facility] Family Medicine [address] [place] [address] Family Medicine, Physician [address] [place] [address] Social History Tobacco Use Types Packs/Day Years [...] on filedocumented in this encounter Care Teams Medical Equipment Repairer Relationship Specialty Start Date End Date Felicitas Mendosa NP [address] [place] [address] PCP - General Pediatrics 09/07/20 12/17/24 documented as of this encounter
== END 2025-04-21 11:37 | disposition home or self-care (01) ==
LOC: HO.HMCFM 10:54
PROVIDERS: PCP Nurse Practitioner Family; Visit Provider Nurse Practitioner Family
DX: E55.9 Vitamin D deficiency, unspecified (principal); M25.551 Pain in right hip; K40.90 Unilateral inguinal hernia, without obstruction or gangrene, not specified as recurrent

== ENCOUNTER → 2025-04-21 10:53 | Outpatient (BNVA) | payer OTHER, SELFPAY | PROVIDERS: PCP Nurse Practitioner Family; Visit Provider Nurse Practitioner Family | DX: M25.551 Pain in right hip (principal); E55.9 Vitamin D deficiency, unspecified; K40.90 Unilateral inguinal hernia, without obstruction or gangrene, not specified as recurrent | CPT/HCPCS: 99212 ==

== ENCOUNTER 2025-06-04 09:13 | Outpatient (AMB) | payer OTHER, SELFPAY ==
[2025-06-04 09:20] VITALS: BP 94/60; PULSE 79; O2SAT 97; BMI 19.9
--- NOTE | 2025-06-04 09:20 | A.OFFVIS_ITS ---
Vital Signs 06/04/25 09:20 Height 5 ft 7 in Weight 127 lb 4 oz BMI 19.9 BP 94/60 Blood Pressure Location Rt brachial Position Sitting Pulse 79 Pulse Source Pulse Oximeter Pulse Oximetry (%) 97 Oxygen Delivery Method Room Air Intake Visit Reasons: Asthma Allergies No Known Allergies Allergy (Verified 06/04/25 09:27) HPI HPI Asthma: Details: Nabeel is a pleasant 24 year male, current tobacco smoker, with underlying asthma. He was referred by PCP for pulmonary evaluation. He has had asthma since childhood and has experienced multiple hospitalizations due to asthma exacerbations, with the most recent hospitalization occurring in January of this year. The patient reports frequent use of prednisone in the past six months and reliance on a nebulizer with DuoNeb for symptom management. The patient has a history of nicotine dependence, smoking approximately three times a day, using tobacco mixed with marijuana, which he attributes to worsening asthma symptoms. He has attempted to quit smoking by using vape pens and edibles, but continues to struggle with cessation. The patient also reports allergic rhinitis, with symptoms exacerbated by exposure to mold in the past and a dog at home. He takes Claritin for symptom relief, which provides some benefit. He was adopted unsure of family history. [facility] Medical History (Updated 06/04/25 @ 10:07 by Anastacia Taylor NP) Depression Anxiety Sciatic nerve pain Sinusitis Asthma Family History (Updated 03/25/25 @ 09:24 by Charline Schofield MA) Mother Substance abuse Social History (Updated 06/04/25 @ 09:24 by Gretta Baca CMA) Housing: House Patient Tobacco Use Status: Current everyday Tobacco user e-Cigarette/Vaping Use: Former Use Second Hand Smoke Exposure: Yes Substance Use Type: Marijuana service: No Current occupational status: unemployed Current occupational exposures/hazards: No Cognitive needs: No Hearing needs: No Vision needs: No Review of Systems Const Denies chills, Denies excessive sweating, Denies fever(s), Denies headache(s) and Denies night sweats Eyes Denies dry eyes, Denies irritation and Denies itchy eyes ENT Reports Normal hearing present, Denies headache(s), Denies nasal congestion, Denies post nasal drip and Denies sore throat Card Denies chest pain, Denies chest pain at rest, Denies chest pain with activity, Denies claudication, Denies leg edema, Denies dyspnea, Denies orthopnea and Jake es paroxysmal nocturnal dyspnea Resp Denies chest congestion, Denies excessive phlegm production, Denies pain on inspiration, Denies pain with cough, Denies dyspnea and Denies stridor Musc Denies myalgias Neuro Reports Normal hearing present and Denies headache(s) Endo Denies excessive sweating Malik/Lymph Denies lymphadenopathy Aller/Immun Denies itchy eyes and Denies seasonal rhinorrhea Physical Exam Vital Signs: Last Vital Signs Pulse 79 06/04/25 09:20 BP 94/60 06/04/25 09:20 Pulse Ox 97 06/04/25 09:20 Oxygen Delivery Method Room Air 06/04/25 09:20 BMI result Body Mass Index 19.9 Const General: cooperative, healthy appearing, comfortable, no acute distress and alert Nutritional Appearance: thin Orientation/consciousness: patient oriented x3 Limitations: no limitations HEENT Head: Yes normal to inspection, Yes normocephalic and Yes atraumatic Ears: hearing grossly normal bilaterally and external ears normal Eyes General: appearance normal, both eyes and all related structures Eyelids: Yes eyelids normal Sclerae: sclerae normal EOM: EOMs intact bilaterally Neck Neck: Yes normal visual inspection and Yes no lymphadenopathy Lymphatic: no lymphadenopathy noted Chest Chest palpation & inspection: normal inspection of the chest Resp Effort & Inspection: normal respiratory effort, able to speak in complete sentences, no audible wheezes, no cough, no stridor, not tachypneic, no tripod positioning and no use of accessory muscles Auscultation: diminished lung sounds Cardio Jugular venous distension: no JVD Rate: regular rate Rhythm: regular rhythm Skin Other: warm, dry General skin exam: no rashes or lesions noted Neuro General: patient oriented x3 Cranial nerves: Yes Normal hearing present Cognition (Neuro): normal cognition Gait exam (Neuro): Normal gait present Extrem General: Yes normal to inspection, Yes capillary refill normal, Yes no clubbing, cyanosis or edema and Yes no pedal edema Psych Appearance: grossly normal and well kempt Speech and movement: Normal speech and movement present and Clear speech present Affect: normal affect Attitude: cooperative Thought process: Normal thought process present Thought content: Normal thought content present Insight: Good insight present (Psych) Judgement: Good judgement present (Psych) Results Reviewed Results Reviewed: RESULT: Chest 2 Views Frontal and Lat Chest 2 Views Frontal and Lat INDICATION/CLINICAL QUESTION: Shortness of breath. Cough. TECHNIQUE: Frontal and lateral views of the chest. COMPARISON: 11/06/2024.. FINDINGS: LINES AND TUBES: None. LUNGS AND PLEURA: RIGHT CHEST: The right lung is clear and there is no right effusion. LEFT CHEST: The left lung is clear and there is no left effusion. HEART, MEDIASTINUM AND POPPY: The heart is of normal size. The mediastinum and poppy are normal. BONES AND SOFT TISSUES: No acute bony abnormality. IMPRESSION: 1. No active disease in chest. WSN: [id number] Ordering Physician: Casey Coley I Reason For Exam Shortness of Breath, Fever;Other: Signature Line Dictated By: Gabriele Kamara MD Dictated Date/Time: 11/15/24 11:44 p Reviewed By: Gabriele Kamara MD Signed By: Gabriele Kamara MD Signed Date/Time: 11/15/24 11:44 pm Transcribed By: BONNIE Transcribed Date/Time: 11/15/24 11:43 pm Assessment & Plan Assessment & Plan (1) Asthma: Code(s): J45.909 - Unspecified asthma, uncomplicated Category: Medical (2) Environmental allergies: Code(s): Z91.09 - Other allergy status, other than to drugs and biological substances Category: Medical (3) Nicotine dependence, cigarettes, uncomplicated: Code(s): F17.210 - Nicotine dependence, cigarettes, uncomplicated Category: Medical Plan Discussed prescribing Breo for asthma management, with instructions to use it consistently as well as Albuterol PRN. Discussed the importance of good oral hygiene to prevent thrush. We will send for PFT. Allergy testing will be conducted to identify specific allergens contributing to symptoms. The patient is advised to continue using Claritin for allergic rhinitis and to avoid smoking and vaping to prevent exacerbation of asthma symptoms. All questions were answered and patient is in agreement of plan. We will follow up in 6-8 weeks or sooner if needed. Orders: Orders Resp Allergy Profile Region I Today Z91.09 - Other allergy status, other than to drugs and biological substances Complete Blood Count Auto Diff Today Z91.09 - Other allergy status, other than to drugs and biological substances Immunoglobulin E Today Z91.09 - Other allergy status, other than to drugs and biological substances PFT pulmonary function test Today J45.909 - Unspecified asthma, uncomplicated Medications: New fluticasone furoate-vilanterol 100-25 mcg/dose (Breo Ellipta) 1 inh inhalation DAILY 60 ea 3RF albuterol sulfate 90 mcg/actuation 2 puffs inhalation Q4-6H PRN 1 ea 3RF shortness of breath or wheezing J45.909 - Unspecified asthma, uncomplicated Coding Level of Care Code New Pt Level 4 (88183) Diagnoses Asthma J45.909 Environmental allergies Z91.09 Nicotine dependence, cigarettes, uncomplicated F17.210
--- OUTSIDE RECORDS SUMMARY | 2025-06-04 09:42 | XMS_ITS | Encounter Summary ---
Author Organization [facility] Address [address] [place] [address] Phone Care Team Providers Care Sugar Laboratory Assistant Name Role Phone Felicitas Mendosa NP Primary Care Provider [phone] Encounter Details Date Type Department Care Team (Late st Contact Info) Description 11/25/2009 Documentation [facility] Family Medicine [address] [place] [address] Family Medicine, Physician [address] [place] [address] Social History Tobacco Use Types Packs/Day Years [...] on filedocumented in this encounter Care Teams Sugar Laboratory Assistant Relationship Specialty Start Date End Date Felicitas Mendosa NP [address] [place] [address] PCP - General Pediatrics 09/07/20 12/17/24 documented as of this encounter
== END 2025-06-04 10:29 | disposition home or self-care (01) ==
LOC: HO.HPSW 09:14
PROVIDERS: PCP Nurse Practitioner Family; Referring Provider Nurse Practitioner Family; Visit Provider Nurse Practitioner Family
DX: J45.909 Unspecified asthma, uncomplicated (principal); Z91.09 Other allergy status, other than to drugs and biological substances; F17.210 Nicotine dependence, cigarettes, uncomplicated
CPT/HCPCS: 99204

== ENCOUNTER → 2025-06-04 09:13 | Outpatient (BNVA) | payer OTHER, SELFPAY | PROVIDERS: PCP Nurse Practitioner Family; Referring Provider Nurse Practitioner Family; Visit Provider Nurse Practitioner Family | DX: R06.02 Shortness of breath (principal); J45.909 Unspecified asthma, uncomplicated; Z91.09 Other allergy status, other than to drugs and biological substances; F17.210 Nicotine dependence, cigarettes, uncomplicated | CPT/HCPCS: 99202 ==

== ENCOUNTER 2025-06-09 11:22 | Outpatient (AMB) | payer OTHER, SELFPAY ==
--- NOTE | 2025-06-09 11:24 | MHC.OFFVIS ---
Vital Signs 06/09/25 11:32 Height 5 ft 7 in Weight 131 lb BMI 20.5 BP 117/71 Blood Pressure Location Rt brachial Position Sitting Pulse 60 Intake Visit Reasons: Unilateral inguinal hernia Intake Note: Patient referred by pcp Parminder LINDER for evaluation of unilateral inguinal hernia. Patient c/o: on and off painful. Smoking irritates it. No imaging. Space Engineer Required: No Accompanied by: Self / Same As Patient Allergies No Known Allergies Allergy (Verified 06/09/25 11:29) Medication List - Last Reconciled 06/11/25 by John Vidal MD albuterol sulfate 90 mcg/actuation (Ventolin HFA) 2 puffs inhalation Q4-6H PRN albuterol sulfate 90 mcg/actuation 2 puffs inhalation Q4-6H PRN cholecalciferol (vitamin D3) 25 mcg PO DAILY 90 days cyclobenzaprine 5 mg PO BID fluticasone furoate-vilanterol 100-25 mcg/dose (Breo Ellipta) 1 inh inhalation DAILY ipratropium-albuterol 0.5 mg-3 mg(2.5 mg base)/3 mL 3 mL inhalation Q4-6H PRN naproxen 500 mg PO BID PRN HPI HPI Unilateral inguinal hernia: Details: 24-year-old male referred for a right inguinal hernia. He said he has noticed this reducible mass in his right groin for about 4 months now. He says that sometimes this gets bigger and more uncomfortable whenever he coughs or does physical exertion. He says that this mass reduces spontaneously. He denies any other complaints and says he is healthy overall. REPLACED BY [facility] Medical History Depression Anxiety Sciatic nerve pain Sinusitis Asthma Family History Mother Substance abuse Social History Housing: House Patient Tobacco Use Status: Current everyday Tobacco user e-Cigarette/Vaping Use: Former Use Second Hand Smoke Exposure: Yes Substance Use Type: Marijuana service: No Current occupational status: unemployed Current occupational exposures/hazards: No Cognitive needs: No Hearing needs: No Vision needs: No Review of Systems Const Denies chills and Denies fever(s) Card Denies chest pain, Denies dyspnea and Denies dyspnea on exertion Resp Denies cough, Denies dyspnea and Denies dyspnea on exertion GI Denies hematochezia and Denies change in bowel habits Denies hematuria and Denies difficulty urinating Musc Denies back pain and Denies limited range of motion Neuro Denies focal weakness and Denies convulsions Psych Denies depression and Denies mood swings Physical Exam Vital Signs: Last Vital Signs Pulse 60 06/09/25 11:32 BP 117/71 06/09/25 11:32 BMI result Body Mass Index 20.5 Const General: comfortable and no acute distress Orientation/consciousness: patient oriented x3 Neck Neck: Yes no lymphadenopathy Resp Auscultation: clear to auscultation bilaterally Cardio Rhythm: regular rhythm GI Other: Right inguinal hernia, reducible, nontender, no skin changes Palpation (GI): Soft to palpation, nontender and no guarding Neuro General: patient oriented x3 Assessment & Plan Assessment & Plan (1) Right inguinal hernia: Code(s): K40.90 - Unilateral inguinal hernia, without obstruction or gangrene, not specified as recurrent Category: Medical Plan: He has a reducible right inguinal hernia. He has significant symptoms and discomfort. He therefore wants this repaired. I explained to him the technique of repair with mesh placement. I reviewed the risks including but not limited to bleeding, infections, injury to other organs including bowel, vas deferens, testicle, recurrence, postop pain, as well as the benefits and alternatives. I also reviewed with him what to expect postoperatively He says he understands and wants to proceed. Coding Level of Care Code New Pt Level 3 (00965) Diagnoses Right inguinal hernia K40.90
[2025-06-09 11:32] VITALS: BP 117/71; PULSE 60; BMI 20.5
--- OUTSIDE RECORDS SUMMARY | 2025-06-09 12:18 | XMS_ITS | Encounter Summary ---
Author Organization [facility] Address [address] [place] [address] Phone Care Team Providers Care Adolescent Specialist Name Role Phone Felicitas Mendosa NP Primary Care Provider [phone] Encounter Details Date Type Department Care Team (Late st Contact Info) Description 11/25/2009 Documentation [facility] Family Medicine [address] [place] [address] Family Medicine, Physician [address] [place] [address] Social History Tobacco Use Types Packs/Day Years [...] on filedocumented in this encounter Care Teams Adolescent Specialist Relationship Specialty Start Date End Date Felicitas Mendosa NP [address] [place] [address] PCP - General Pediatrics 09/07/20 12/17/24 documented as of this encounter
== END 2025-06-09 11:42 | disposition home or self-care (01) ==
LOC: HO.HGS 11:23
PROVIDERS: PCP Nurse Practitioner Family; Visit Provider Surgery
DX: K40.90 Unilateral inguinal hernia, without obstruction or gangrene, not specified as recurrent (principal)
CPT/HCPCS: 99203

== ENCOUNTER → 2025-06-09 11:22 | Outpatient (BNVA) | payer OTHER, SELFPAY | PROVIDERS: PCP Nurse Practitioner Family; Visit Provider Surgery | DX: K40.90 Unilateral inguinal hernia, without obstruction or gangrene, not specified as recurrent (principal) | CPT/HCPCS: 99202 ==

== ENCOUNTER 2025-09-17 16:09 | Outpatient (AMB) | payer OTHER, SELFPAY ==
[2025-09-17 16:11] VITALS: BP 92/58; PULSE 114; O2SAT 94; BMI 20.4
--- NOTE | 2025-09-17 16:11 | MHC.OFFVIS ---
Vital Signs 09/17/25 16:11 Height 5 ft 7 in Weight 130 lb 8 oz BMI 20.4 BP 92/58 L Blood Pressure Location Rt brachial Position Sitting Pulse 114 H Pulse Source Pulse Oximeter Pulse Oximetry (%) 94 Oxygen Delivery Method Room Air Intake Visit Reasons: Asthma Allergies No Known Allergies Allergy (Verified 09/17/25 16:14) HPI HPI Asthma: Details: Nabeel is a pleasant 25 year male, current tobacco smoker, with underlying asthma. He has had asthma since childhood and has experienced multiple hospitalizations due to asthma exacerbations, with the most recent hospitalization occurring in January of this year. The patient reports frequent use of prednisone in the past six months and reliance on a nebulizer with DuoNeb for symptom management. At the last visit, he was started on Breo with good effect however had insurance coverage issues so was without for quite some time, during this time patient had an exacerbation requiring prednisone. Recently restarted Breo a few days ago. At this time he feels respiratory symptoms are well controlled. The patient has a history of nicotine dependence, smoking approximately three times a day, using tobacco mixed with marijuana, which he attributes to worsening asthma symptoms, continues to struggle with cessation. Unfortunately patient had phone number change and PFT was never scheduled, nor did he obtain RAST testing. [facility] Medical History Depression Anxiety Sciatic nerve pain Sinusitis Asthma Family History Mother Substance abuse Social History (Updated 09/17/25 @ 16:14 by Gretta Baca CMA) Housing: House Patient Tobacco Use Status: Current everyday Tobacco user e-Cigarette/Vaping Use: Former Use Second Hand Smoke Exposure: Yes Substance Use Type: Marijuana service: No Current occupational status: unemployed Current occupational exposures/hazards: No Cognitive needs: No Hearing needs: No Vision needs: No Review of Systems Const Denies chills, Denies excessive sweating, Denies fever(s), Denies headache(s) and Denies night sweats Eyes Denies dry eyes, Denies irritation and Denies itchy eyes ENT Reports Normal hearing present, Denies headache(s), Denies nasal congestion, Denies nasal discharge, Denies post nasal drip and Denies sore throat Card Denies chest pain, Denies chest pain at rest, Denies chest pain with activity, Denies claudication, Denies leg edema, Denies dyspnea, Denies dyspnea on exertion, Denies orthopnea and Denies paroxysmal nocturnal dyspnea Resp Denies chest congestion, Denies cough, Denies excessive phlegm production, Denies pain on inspiration, Denies pain with cough, Denies dyspnea, Denies dyspnea on exertion, Denies stridor and Denies wheezing Musc Denies myalgias Neuro Reports Normal hearing present and Denies headache(s) Endo Denies excessive sweating Malik/Lymph Denies lymphadenopathy Aller/Immun Denies itchy eyes, Denies seasonal rhinorrhea and Denies wheezing Physical Exam Vital Signs: Last Vital Signs Pulse 114 H 09/17/25 16:11 BP 92/58 L 09/17/25 16:11 Pulse Ox 94 09/17/25 16:11 Oxygen Delivery Method Room Air 09/17/25 16:11 BMI result Body Mass Index 20.4 Const General: cooperative, healthy appearing, comfortable, no acute distress and alert Nutritional Appearance: thin Orientation/consciousness: patient oriented x3 Limitations: no limitations HEENT Head: Yes normal to inspection, Yes normocephalic and Yes atraumatic Ears: hearing grossly normal bilaterally and external ears normal Eyes General: appearance normal, both eyes and all related structures Eyelids: Yes eyelids normal Sclerae: sclerae normal EOM: EOMs intact bilaterally Neck Neck: Yes normal visual inspection and Yes no lymphadenopathy Lymphatic: no lymphadenopathy noted Chest Chest palpation & inspection: normal inspection of the chest Resp Effort & Inspection: normal respiratory effort, able to speak in complete sentences, no audible wheezes, no cough, no stridor, not tachypneic, no tripod positioning and no use of accessory muscles Auscultation: diminished lung sounds Cardio Jugular venous distension: no JVD Rate: regular rate Rhythm: regular rhythm Skin Other: warm, dry General skin exam: no rashes or lesions noted Neuro General: patient oriented x3 Cranial nerves: Yes Normal hearing present Cognition (Neuro): normal cognition Gait exam (Neuro): Normal gait present Extrem General: Yes normal to inspection, Yes capillary refill normal, Yes no clubbing, cyanosis or edema and Yes no pedal edema Psych Appearance: grossly normal and well kempt Speech and movement: Normal speech and movement present and Clear speech present Affect: normal affect Attitude: cooperative Thought process: Normal thought process present Thought content: Normal thought content present Insight: Good insight present (Psych) Judgement: Good judgement present (Psych) Assessment & Plan Assessment & Plan (1) Asthma: Code(s): J45.909 - Unspecified asthma, uncomplicated Category: Medical (2) Environmental allergies: Code(s): Z91.09 - Other allergy status, other than to drugs and biological substances Category: Medical (3) Nicotine dependence, cigarettes, uncomplicated: Code(s): F17.210 - Nicotine dependence, cigarettes, uncomplicated Category: Medical Plan At this time, patient with good control with the use of Breo and Albuterol PRN, encouraged to continue. Patient aware to call if symptoms change. Will have CS reach out to patient to schedule PFT as he switched phone numbers and he is aware to have RAST testing performed. Smoking cessation reviewed and patient working towards. All questions were answered and patient is in agreement of plan. We will follow up in 3 months or sooner if needed. Coding Level of Care Code Est Pt Level 4 (09340) Diagnoses Asthma J45.909 Environmental allergies Z91.09 Nicotine dependence, cigarettes, uncomplicated F17.210
--- OUTSIDE RECORDS SUMMARY | 2025-09-17 18:59 | XMS_ITS | Encounter Summary ---
Author Organization [facility] Address [address] [place] [address] Phone Care Team Providers Care [employer] Combination Teacher Name Role Phone Deondre Felicitas NP Primary Care Provider [phone] Reason for Visit * Reason Onset Date Comments Med Refill 08/12/2021 Encounter Details Date Type Department Care Team (Late st Contact Info) Description 08/12/2021 [facility] [address] [address] Osman Guy MD [address] [place] [id number] Allergic rhinitis, unspecified seasonality, unspecified trigger; Moderate [...] complication documented in this encounter Care Teams Middle School Combination Teacher Relationship Specialty Start Date End Date Felicitas Mendosa NP [address] [place] [address] PCP - General Pediatrics 09/07/20 12/17/24 documented as of this encounter
--- OUTSIDE RECORDS SUMMARY | 2025-09-17 18:59 | XMS_ITS | Encounter Summary ---
Author Organization [facility] Address [address] [place] [address] Phone Care Team Providers Care Livestock Yard Supervisor Name Role Phone Felicitas Mendosa NP Primary Care Provider [phone] Reason for Visit * Reason Comments Med Refill Encounter Details Date Type Department Care Team (Late st Contact Info) Description 10/22/2021 [facility]ill [facility] [address] [place] [address] Karime Christianson NP Moderate persistent asthma without [...] complication documented in this encounter Care Teams Livestock Yard Supervisor Relationship Specialty Start Date End Date Felicitas Mendosa NP [address] [place] [place] [address] PCP - General Pediatrics 09/07/20 12/17/24 documented as of this encounter
--- OUTSIDE RECORDS SUMMARY | 2025-09-17 18:59 | XMS_ITS | Encounter Summary ---
Author Organization [facility] Address [address] [place] [address] Phone Care Team Providers Care Municipal Maintenance Worker Name Role Phone Felicitas Mendosa NP Primary Care Provider [phone] Encounter Details Date Type Department Care Team (Late st Contact Info) Description 11/25/2009 Documentation [facility] [place] Family Medicine [address] [place] [address] Family Medicine, Physician [address] [place] [address] Social History Tobacco Use Types Packs/Day Years [...] on filedocumented in this encounter Care Teams Municipal Maintenance Worker Relationship Specialty Start Date End Date Felicitas Mendosa NP [address] [place] [address] PCP - General Pediatrics 09/07/20 12/17/24 documented as of this encounter
--- OUTSIDE RECORDS SUMMARY | 2025-09-17 18:59 | XMS_ITS | Encounter Summary ---
Author Organization [facility] Address [address] [place] [address] Phone Care Team Providers Care Police Officer Name Role Phone Felicitas Mendosa NP Primary Care Provider [phone] Encounter Details Date Type Department Care Team (Late st Contact Info) Description 03/25/2018 Conversion [facility]counter [facility] [address] [place] [address] Social History Tobacco Use Types Packs/Day Years [...] on filedocumented in this encounter Care Teams Police Officer Relationship Specialty Start Date End Date Felicitas Mendosa NP [address] [place] [address] PCP - General Pediatrics 09/07/20 12/17/24 documented as of this encounter
--- OUTSIDE RECORDS SUMMARY | 2025-09-17 18:59 | XMS_ITS | Encounter Summary ---
Author Organization [facility] Address [address] [place] [address] Phone Care Team Providers Care Research Spec Name Role Phone Deondre Felicitas NP Primary Care Provider [phone] Reason for Visit * Reason Comments Med Refill Encounter Details Date Type Department Care Team (Late st Contact Info) Description 04/09/2021 [facility]ill [facility] [address] [address] Osman Guy MD [address] [place] [address] Moderate persistent asthma without complication Social History [...] complication documented in this encounter Care Teams Research Spec Relationship Specialty Start Date End Date Felicitas Mendosa NP [address] [place] [address] PCP - General Pediatrics 09/07/20 12/17/24 documented as of this encounter
--- OUTSIDE RECORDS SUMMARY | 2025-09-17 18:59 | XMS_ITS | Encounter Summary ---
Author Organization [facility] Address [address] [place] [address] Phone Care Team Providers Care Loom Inspector Name Role Phone Felicitas Mendosa NP Primary Care Provider [phone] Reason for Visit * Reason Comments Med Refill Encounter Details Date Type Department Care Team (Late st Contact Info) Description 09/26/[address] [facility] [address] [place] [address] Felicitas Mendosa NP 7 [place] [address] Moderate persistent asthma without complication Social History [...] PM EST Refill request for ProAir Last [facility] 03/18/21 Refilled 09/23/21 Refuse? Please see 09/23/21 encounter documented in this encounter Plan of Treatment Not on file documented as of this encounter Visit Diagnoses Diagnosis Moderate persistent asthma without complication documented in this encounter Care Teams Loom Inspector Relationship Specialty Start Date End Date Deondre, AMBROCIO Polk [address] [place] [address] PCP - General Pediatrics 09/07/20 12/17/24 documented as of this encounter
--- OUTSIDE RECORDS SUMMARY | 2025-09-17 18:59 | XMS_ITS | Encounter Summary ---
Author Organization [facility] Address [address] [place] [address] Phone Care Team Providers Care Field Service Rep Name Role Phone Felicitas Mendosa NP Primary Care Provider Reason for Visit * Reason Onset Date Comments Med Refill 09/07/2020 Encounter Details Date Type Department Care Team (Late st Contact Info) Description 09/07/2020 [facility]ill [facility] [place] [address] [place] [address] Felicitas Mendosa NP [address] [place] [address] [place] [address] Social History Tobacco Use Types Packs/Day Years [...] on filedocumented in this encounter Care Teams Field Service Rep Relationship Specialty Start Date End Date Felicitas Mendosa NP [address] [place] [address] PCP - General Pediatrics 09/07/20 12/17/24 documented as of this encounter
--- OUTSIDE RECORDS SUMMARY | 2025-09-17 18:59 | XMS_ITS | Encounter Summary ---
Author Organization [facility] Address [address] [place] [address] Phone Care Team Providers Care Title I Director Name Role Phone Felicitas Mendosa NP Primary Care Provider [phone] Reason for Visit * Reason Onset Date Comments Med Refill 08/12/2021 Encounter Details Date Type Department Care Team (Late st Contact Info) Description 08/12/2021 [facility]ill [facility] [address] [place] [address] Felicitas Mendosa NP 7 [place] [address] Moderate persistent asthma without complication Social History [...] EDT Cetirizine 10 Advair 2 puffs BID [facility] 03/18/21 documented in this encounter Plan of Treatment Not on file documented as of this encounter Visit Diagnoses Diagnosis Moderate persistent asthma without complication documented in this encounter Care Teams Title I Director Relationship Specialty Start Date End Date Felicitsa Mendosa NP 7 [place] [address] PCP - General Pediatrics 09/07/20 12/17/24 documented as of this encounter
--- OUTSIDE RECORDS SUMMARY | 2025-09-17 18:59 | XMS_ITS | Clinical Summary ---
Author Organization [facility] Address [address] [place] [address] Phone Care Team Providers Care Returned Goods Repairer Name Role Phone Unavailable Primary Care Provider [...] a good connection with this therapist at [facility] who left the organization. He expresses a [...] also gave him the phone number for [facility] and he says he will call to [...] to abstain. Gave printed material from the [facility] with teen/young adult supports (texting, [employer] ([employer], etc). 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 [...] Mom's partner, who sifgned the certificate, in nursing home of unknown cause Maternal Grandfather Other unknown [...] 70 01/01/2020 2:05 PM EST Temperature 37 C (98.6 F) 01/08/2020 1:55 PM EST Respiratory Rate - [...] 12/26/2001, Additional history exists Influenza Vaccines (#1) 2025 08/14/20, 01/09/2017, 11/24/2015, Additional history exists COVID-19 Vaccine ( season) 2025 Hepatitis B Vaccines Completed 06/18/2001, 2000, 2000 HIB Vaccines Completed 12/26/2001, 03/06, 01/17/2001, Additional history exists Pneumococcal Vaccine Completed 12/26/2001, 03/19/2001, 01/17/2001 MMR Vaccines Completed 09/20/2004, 09/18/2001 IPV Vaccines Completed 09/19/2005, 06/06, 01/17/2001, Additional history exists Varicella Vaccines Completed 10/04/2007, 09/18/2001 HPV Vaccines Completed 11/22/2012, 0303/2012, 11/07/2011 Meningococcal Vaccine Completed 01/09/2017, 012 Men B Vaccine Aged Out No longer elig ible based on patient's age to complete this topic Insurance [facility] NON PCC
--- OUTSIDE RECORDS SUMMARY | 2025-09-17 18:59 | XMS_ITS | Encounter Summary ---
Author Organization [facility] Address [address] [place] [address] Phone Care Team Providers Care Senior Controls Technician Name Role Phone Felicitas Mendosa NP Primary Care Provider [phone] Reason for Visit * Reason Onset Date Comments Med Refill 11/11/2020 Encounter Details Date Type Department Care Team (Late st Contact Info) Description 11/11/2020 [facility] [address] [place] [address] Felicitas Mendosa NP 7 [place], [place] [id number] Allergic rhinitis, unspecified seasonality, unspecified trigger; Moderate [...] complication documented in this encounter Care Teams Senior Controls Technician Relationship Specialty Start Date End Date Felicitas Mendosa NP [address] [place] [address] PCP - General Pediatrics 09/07/20 12/17/24 documented as of this encounter
== END 2025-09-17 16:28 | disposition home or self-care (01) ==
PROVIDERS: PCP Nurse Practitioner Family; Visit Provider Nurse Practitioner Family
DX: J45.909 Unspecified asthma, uncomplicated (principal); Z91.09 Other allergy status, other than to drugs and biological substances; F17.210 Nicotine dependence, cigarettes, uncomplicated
CPT/HCPCS: 99214

== ENCOUNTER → 2025-09-17 16:09 | Outpatient (BNVA) | payer OTHER, SELFPAY | PROVIDERS: PCP Nurse Practitioner Family; Visit Provider Nurse Practitioner Family | DX: J45.909 Unspecified asthma, uncomplicated (principal); Z91.09 Other allergy status, other than to drugs and biological substances; F17.210 Nicotine dependence, cigarettes, uncomplicated | CPT/HCPCS: 99212 ==

== ENCOUNTER 2025-10-13 15:20 | Emergency (ER) | payer OTHER, SELFPAY ==
[2025-10-13 15:46] VITALS: BP 105/74; PULSE 84; RESP 18; TEMP 36.8; O2SAT 95; BMI 20.7
--- NOTE | 2025-10-13 15:50 | ED_ITS ---
HPI - General Adult General Chief complaint: General Medical Stated complaint: Sore throat Time Seen by Provider: 10/13/25 17:48 Source: patient Mode of arrival: ambulatory Limitations: no limitations History of Present Illness ED Provider: Vinnie Almonte HPI narrative: 25 yold male presents to the ED for URI symptoms. Patient states coughing, sore throat, chills, bodyaches, adn fatigue. patient denies any other symptoms. Related Data Home Medications ?Medication ?Instructions ?Recorded ?Confirmed albuterol sulfate 90 mcg/actuation 2 puff inhalation Q 4-6H PRN 03/25/25 06/11/25 aerosol inhaler (Ventolin HFA) Previous Rx's ?Medication ?Instructions ?Recorded cyclobenzaprine 5 mg tablet 5 mg PO BID #30 tabs 03/25 cholecalciferol (vitamin D3) 25 25 mcg PO DAILY 90 day s #90 tabs 04/21/25 mcg (1,000 unit) tablet albuterol sulfate 90 mcg/actuation 2 puff inhalation Q 4-6H PRN 06/04/25 aerosol inhaler shortness of breath or wheez ing #1 ea fluticasone furoate 100 1 inh inhalation DAILY #60 e a 06/04/25 mcg-vilanterol 25 mcg/dose inhalation powder (Breo Ellipta) ipratropium 0.5 mg-albuterol 3 mg 3 ml inhalation Q4-6 H PRN 08/06/25 (2.5 mg base)/3 mL nebulization shortness of breath or wheezing soln #180 mL azithromycin 250 mg tablet See Rx Instructions PO .COM PLEX #6 10/13/25 tabs benzonatate 200 mg capsule 200 mg PO TID PRN cough #15 caps 10/13/25 prednisone 20 mg tablet 40 mg (2 x 20 mg) PO DAILY 5 days 10/13/25 #10 tabs Allergies Allergy/AdvReac Type Severity Reaction Status Date / Time No Known Allergies Allergy Verified 10/13/25 15:49 Review of Systems Review of Systems: sore throat, coughing, fatigue Yes all other systems are reviewed and are negative PMFSH Past Medical History Medical History Depression Anxiety Sciatic nerve pain Sinusitis Asthma Family History Family History Mother Substance abuse Social History Social History (Updated 09/17/25 @ 16:14 by Gretta Baca CMA) Housing: House Patient Tobacco Use Status: Current everyday Tobacco user e-Cigarette/Vaping Use: Former Use Second Hand Smoke Exposure: Yes Substance Use Type: Marijuana Advance Directives: No Advance Directives Information Provided: No Do you have a plan to hurt others: No Plan service: No Current occupational status: unemployed Current occupational exposures/hazards: No Cognitive needs: No Hearing needs: No Vision needs: No Physical Exam ED Vital Signs: Vital Signs - 24 hr 10/13/25 15:46 Temperature 98.2 F Pulse Rate 84 Respiratory Rate 18 Blood Pressure 105/74 Pulse Oximetry 95 Oxygen Delivery Method Room Air BMI result Body Mass Index 20.7 Const General: cooperative, healthy appearing, comfortable, no acute distress, well developed, alert, awake and Physically active Orientation/consciousness: patient oriented x3 HENMT Head: Yes normal to inspection, Yes No palpable skull fracture present, Yes normocephalic and Yes atraumatic Ears: hearing grossly normal bilaterally, external ears normal, TM's normal bilaterally, TM normal on the right, TM normal on the left, EAC's normal, mastoids normal and no periauricular adenopathy Throat: Yes posterior oropharynx normal, Yes tonsils normal and Yes uvula midline Eyes General: appearance normal, both eyes and all related structures Neck Neck: Yes normal visual inspection, Yes full ROM, Yes no lymphadenopathy, Yes no meningeal signs, Yes trachea midline, Yes supple, No anterior neck swelling and No tender Chest Chest palpation & inspection: normal inspection of the chest and normal palpation of entire chest wall Resp Effort & Inspection: normal respiratory effort and able to speak in complete sentences Auscultation: wheezes expiratory wheezes Cardio Jugular venous distension: no JVD Heart sounds: S1 normal heart sound present and S2 normal heart sound present GI Inspection: Yes normal to inspection Palpation (GI): Soft to palpation, not firm, nontender, no guarding and not rigid General: Yes no CVA tenderness Back/Spine/Pelvis Back: no CVA tenderness and No back tenderness Skin General skin exam: no rashes or lesions noted and elasticity normal Neuro General: patient oriented x3, gait normal, tone normal, moves all extremities, Normal light touch and pain sensation, no meningeal signs, no focal motor deficits, CN's II-XI intact bilaterally and normal sensation to monofilament Extrem General: Yes normal to inspection, Yes full ROM and Yes capillary refill normal Psych Appearance: grossly normal, well kempt and not disheveled Course Course Course Narrative: TME: Medical Decision Making Medical Decision Making [facility] Narrative: 25-year-old presents to ED for URI symptoms. Patient's respiratory exam positive for wheezing. Patient has history of asthma we will discharged with prednisone. Patient has albuterol inhaler and liquid. Patient was sent home with cough medication. Patient explained worrisome signs informed return to the ED immediately. not suspecting hypoxia, peritonsillar abscess, masoiditis otitis, Mi, or any other life threatening etiology. Differential Diagnosis Differential Diagnoses: The differential diagnosis associated with the presentation includes (asthma, URI, strep) Admission/Observation Consideration of admission/observation: Escalation of care including admission/observation considered Lab Data [facility] Lab Attestation statement: I reviewed the patient's lab results. Labs: Lab Results 10/13/25 Range/Units 16:00 COVID-19 (MUNIRA) Negative (Negative) COVID-19 Clin Com See Note Influenza Type A (MAYRA) Negative (Negative) Influenza Type B (MAYRA) Negative (Negative) Influenza A & B Note See Note S. pyogenes GrpA MAYRA Negative (Negative) Independent Interpretation I performed an independent interpretation of an: Plain X-Ray Radiology Impression Discussion of test interpretation with radiology: I have reviewed the radiologist's reading. Independent Historian Clinical information obtained from an independent historian. History obtained from or confirmed by: Other (patient) Prescription Management I considered prescription management with: Other ( steroid) Discharge Plan Discharge Clinical Impression: Asthma, URI (upper respiratory infection) Patient Disposition: Home, Self-Care Instructions: Asthma (ED), Upper Respiratory Infection (ED) Additional Instructions: recommend follow up with primary care provider. Continue using albuterol inhaler as needed. You will be discharged with steroids and coughing medication. Return to the ED immediately for any chest pain, shortness of breath, coughing up blood, weakness, dizziness, leg swelling, calf pain, chest pain on inspiration, rash, abdominal pain, nausea, vomiting, recurrent fevers, chills, or any other concerning symptoms. Prescriptions: New prednisone 20 mg tablet 40 mg PO DAILY 5 Days Qty: 10 0RF benzonatate 200 mg capsule 200 mg PO TID PRN (Reason: cough) Qty: 15 0RF azithromycin 250 mg tablet See Rx Instructions .ROUTE .COMPLEX Qty: 6 0RF Rx Instructions: For 250 mg dose pack: take 500 mg today (day 1), then 250 mg for 4 days (days 2-5) No Action ipratropium-albuterol 0.5 mg-3 mg(2.5 mg base)/3 mL solution for nebulization 3 ml inhalation Q4-6H PRN (Reason: shortness of breath or wheezing) Qty: 180 4RF albuterol sulfate [Ventolin HFA] 90 mcg/actuation HFA aerosol inhaler 2 puff inhalation Q4-6H PRN cyclobenzaprine 5 mg tablet 5 mg PO BID Qty: 30 1RF cholecalciferol (vitamin D3) 25 mcg (1,000 unit) tablet 25 mcg PO DAILY 90 Days Qty: 90 3RF fluticasone furoate-vilanterol [Breo Ellipta] 100-25 mcg/dose blister with device 1 inh inhalation DAILY Qty: 60 3RF albuterol sulfate 90 mcg/actuation HFA aerosol inhaler 2 puff inhalation Q4-6H PRN (Reason: shortness of breath or wheezing) Qty: 1 3RF Stand Alone Forms: Work/School Release Interventions: ED Discharge Assessment Last Done: 10/13/25 18:12 Discharge Date/Time: 10/13/25 18:13 Print Language: Maori
[2025-10-13 16:15] LABS: IDNOW Serial# 08D9AD1C; Strep A Nucleic Acid Negative (Negative)
[2025-10-13 16:22] LABS: COVID-19 Test Negative (Negative); IDNOW Serial# 152EDE1D; IDNOW Serial# 16C4AD1C; Influenza B2 Negative (Negative)
[2025-10-13 18:12] VITALS: BP 101/73; PULSE 80; RESP 18; TEMP 36.7; O2SAT 95
--- OUTSIDE RECORDS SUMMARY | 2025-10-14 02:24 | XMS_ITS | Encounter Summary ---
Author Organization [facility] Address [address] [place] [address] Phone Care Team Providers Care Clinic Licensed Practical Nurse Name Role Phone Felicitas Mendosa NP Primary Care Provider [phone] Reason for Visit * Reason Comments Med Refill Encounter Details Date Type Department Care Team (Late st Contact Info) Description 10/22/2021 [facility]ill [facility] [address] [place] [address] Karime Christianson NP Moderate persistent asthma without [...] complication documented in this encounter Care Teams Clinic Licensed Practical Nurse Relationship Specialty Start Date End Date Felicitas Mendosa NP 7 [place] [address] PCP - General Pediatrics 09/07/20 12/17/24 documented as of this encounter
--- OUTSIDE RECORDS SUMMARY | 2025-10-14 02:24 | XMS_ITS | Encounter Summary ---
Author Organization [facility] Address [address] [place] [address] Phone Care Team Providers Care Environmental Technical Officer Name Role Phone Deondre Felicitas NP Primary Care Provider [phone] Reason for Visit * Reason Comments Med Refill Encounter Details Date Type Department Care Team (Late st Contact Info) Description 04/09/2021 [facility] [address] [address] Osman Guy MD [address] [place] [address] Moderate persistent asthma without complication Social History [...] complication documented in this encounter Care Teams Environmental Technical Officer Relationship Specialty Start Date End Date Felicitas Mendosa NP 7 [place] [address] PCP - General Pediatrics 09/07/20 12/17/24 documented as of this encounter
--- OUTSIDE RECORDS SUMMARY | 2025-10-14 02:24 | XMS_ITS | Encounter Summary ---
Author Organization [facility] Address [address] [place] [address] Phone Care Team Providers Care Gas Collection System Operator Name Role Phone Felicitas Mendosa NP Primary Care Provider [phone] Encounter Details Date Type Department Care Team (Late st Contact Info) Description 11/25/2009 Documentation [facility] Family Medicine [address] [place] [address] Family Medicine, Physician [address] [place] [address] Social History Tobacco Use Types Packs/Day Years [...] on filedocumented in this encounter Care Teams Gas Collection System Operator Relationship Specialty Start Date End Date Felicitas Mendosa NP [address] [place] [address] PCP - General Pediatrics 09/07/20 12/17/24 documented as of this encounter
--- OUTSIDE RECORDS SUMMARY | 2025-10-14 02:24 | XMS_ITS | Encounter Summary ---
Author Organization [facility] Address [address] [place] [address] Phone Care Team Providers Care Financial Brokers Name Role Phone Deondre Felicitas NP Primary Care Provider Reason for Visit * Reason Onset Date Comments Med Refill 08/12/2021 Encounter Details Date Type Department Care Team (Late st Contact Info) Description 08/12/2021 [facility] [address] [address] Osman Guy MD [address] [place] [address] Allergic rhinitis, unspecified seasonality, unspecified trigger; Moderate [...] complication documented in this encounter Care Teams Financial Brokers Relationship Specialty Start Date End Date Felicitas Mendosa NP [address] [place] [address] PCP - General Pediatrics 09/07/20 12/17/24 documented as of this encounter
--- OUTSIDE RECORDS SUMMARY | 2025-10-14 02:24 | XMS_ITS | Clinical Summary ---
Author Organization [facility] Address [address] [place] [address] Phone Care Team Providers Care Proposal Review Analyst Name Role Phone Unavailable Primary Care Provider [...] a good connection with this therapist at [facility] who left the organization. He expresses [...] also gave him the phone number for [facility] and he says he will call [...] to abstain. Gave printed material from the [facility] with teen/young adult supports (texting, [employer], etc). 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
--- OUTSIDE RECORDS SUMMARY | 2025-10-14 02:24 | XMS_ITS | Encounter Summary ---
Author Organization [facility] Address [address] [place] [address] Phone Care Team Providers Care After School Program Coordinator Name Role Phone Felicitas Mendosa NP Primary Care Provider [phone] Reason for Visit * Reason Onset Date Comments Med Refill 11/11/2020 Encounter Details Date Type Department Care Team (Late st Contact Info) Description 11/11/2020 [facility] [address] [place] [address] Felicitas Mendosa NP 7 [place], [place] [id number] Allergic rhinitis, unspecified seasonality, unspecified trigger; Moderate [...] complication documented in this encounter Care Teams After School Program Coordinator Relationship Specialty Start Date End Date Felicitas Mendosa NP [address] [place] [address] PCP - General Pediatrics 09/07/20 12/17/24 documented as of this encounter
--- OUTSIDE RECORDS SUMMARY | 2025-10-14 02:24 | XMS_ITS | Encounter Summary ---
Author Organization [facility] Address [address] [place] [address] Phone Care Team Providers Care Vp Of Technology Name Role Phone Felicitas Mendosa NP Primary Care Provider [phone] Reason for Visit * Reason Onset Date Comments Med Refill 08/12/2021 Encounter Details Date Type Department Care Team (Late st Contact Info) Description 08/12/2021 [facility]ill [facility] [address] [place] [address] Felicitas Mendosa NP 7 [place] [address] Moderate persistent asthma without complication Social History [...] EDT Cetirizine 10 Advair 2 puffs BID [facility] 03/18/21 documented in this encounter Plan of Treatment Not on file documented as of this encounter Visit Diagnoses Diagnosis Moderate persistent asthma without complication documented in this encounter Care Teams Vp Of Technology Relationship Specialty Start Date End Date Felicitas Mendosa NP 7 [place] [address] PCP - General Pediatrics 09/07/20 12/17/24 documented as of this encounter
--- OUTSIDE RECORDS SUMMARY | 2025-10-14 02:24 | XMS_ITS | Encounter Summary ---
Author Organization [facility] Address [address] [place] [address] Phone Care Team Providers Care Oracle Business Analyst Name Role Phone Felicitas Mendosa NP Primary Care Provider [phone] Reason for Visit * Reason Comments Med Refill Encounter Details Date Type Department Care Team (Late st Contact Info) Description 09/26/2021 [facility]ill [facility] [address] [place] [address] Felicitas Mendosa NP 7 [place] [address] Moderate persistent asthma without complication Social History [...] PM EST Refill request for ProAir Last [facility] 03/18/21 Refilled 09/23/21 Refuse? Please see 09/23/21 encounter documented in this encounter Plan of Treatment Not on file documented as of this encounter Visit Diagnoses Diagnosis Moderate persistent asthma without complication documented in this encounter Care Teams Oracle Business Analyst Relationship Specialty Start Date End Date Deondre, AMBROCIO Polk [address] [place] [address] PCP - General Pediatrics 09/07/20 12/17/24 documented as of this encounter
--- OUTSIDE RECORDS SUMMARY | 2025-10-14 02:24 | XMS_ITS | Encounter Summary ---
Author Organization [facility] Address [address] [place] [address] Phone Care Team Providers Care Hammer Runner Name Role Phone Felicitas Mendosa NP Primary Care Provider [phone] Reason for Visit * Reason Onset Date Comments Med Refill 09/07/2020 Encounter Details Date Type Department Care Team (Late st Contact Info) Description 09/07/2020 [facility] [place] [address] [place] [address] Felicitas Mendosa NP [address] [place] [address] [place] [address] Social History Tobacco Use Types Packs/Day Years [...] on filedocumented in this encounter Care Teams Hammer Runner Relationship Specialty Start Date End Date Felicitas Mendosa NP [address] [place] [address] PCP - General Pediatrics 09/07/20 12/17/24 documented as of this encounter
--- OUTSIDE RECORDS SUMMARY | 2025-10-14 02:24 | XMS_ITS | Encounter Summary ---
Author Organization [facility] Address [address] [place], [place] [phone] Phone Care Team Providers Care Nail Tech Name Role Phone Felicitas Mendosa NP Primary Care Provider [phone] Encounter Details Date Type Department Care Team (Late st Contact Info) Description 03/25/2018 Conversion Encounter [facility] [address] [place] [address] Social History Tobacco Use Types Packs/Day Years [...] on filedocumented in this encounter Care Teams Nail Tech Relationship Specialty Start Date End Date Felicitas Mendosa NP [address] [place] [address] PCP - General Pediatrics 09/07/20 12/17/24 documented as of this encounter
== END 2025-10-13 18:13 | disposition home or self-care (01) ==
PROVIDERS: Physician Assistant; Emergency Provider Emergency Medicine
DX: J06.9 Acute upper respiratory infection, unspecified (principal); J45.909 Unspecified asthma, uncomplicated; Z03.818 Encounter for observation for suspected exposure to other biological agents ruled out; J02.9 Acute pharyngitis, unspecified; R05.9 Cough, unspecified; R68.83 Chills (without fever); R53.83 Other fatigue; F17.200 Nicotine dependence, unspecified, uncomplicated; Z71.6 Tobacco abuse counseling
CPT/HCPCS: 87502; 87635; 87651; 99282; 99283